=== PATIENT | female | born 1970 | race Caucasian/White ===

== ENCOUNTER 2018-02-01 13:35 | Emergency (ER) | payer OTHER, SELFPAY ==
[2018-02-01 13:35] VITALS: BP 187/103; PULSE 116; RESP 22; TEMP 36.8; O2SAT 99; BMI 32.5
--- NOTE | 2018-02-01 13:57 | RAD_ITS ---
STUDY: X-RAY CHEST REASON FOR EXAM: Female, 47 years old. Chest pain. TECHNIQUE: Single AP portable view of the chest. COMPARISON: None. FINDINGS: EKG electrodes are seen. The lungs are clear and expanded. There is no demonstrated pleural abnormality. Normal size heart. Normal mediastinum and rachel. Normal visualized pulmonary arteries. Normal visualized aortic arch and descending thoracic aorta. Normal visualized thoracic spine. Normal visualized ribs, clavicles, and shoulders. There is no demonstrated abnormality of the visualized soft tissue structures of the upper abdomen. RAD/Chest 1 View (Portable) IMPRESSION: Normal x-ray examination of the chest. Electronically Signed: Frandy Villegas MD at 14:10 EDT Tel [phone], Service support ,
--- NOTE | 2018-02-01 13:57 | EKG12_ITS ---
Test Reason : CP Blood Pressure : / mmHG Vent. Rate : 111 BPM Atrial Rate : 111 BPM P-R Int : 154 ms QRS Dur : 092 ms QT Int : 334 ms P-R-T Axes : 031 -24 025 degrees QTc Int : 454 ms Sinus tachycardia Otherwise normal ECG Confirmed by WOLFGANG ORDOÑEZ ([id number]), news videotape editor ASHER LUGO ([id number]) on 02/04/2018 10:23:26 AM Referred By: ASHLEY Confirmed By:WOLFGANG ORDOÑEZ
[2018-02-01 14:07] VITALS: O2SAT 98
[2018-02-01 14:07] LABS: Absolute Lymphocyte Count 2.92 X10^3/ul (0.83-4.51); Absolute Neutrophil Count 5.9 X10^3/uL (2.0-7.7); Basophil# 0.03 X10^3/uL; Basophil% 0.3 % (0-1); Eosinophil# 0.14 X10^3/uL; Eosinophils% 1.5 % (0-5); Hematocrit 46.6 % (37-47); Hemoglobin 15.5 g/dl (12.0-15.0); Lymphocyte # 2.92 X10^3/ul (4.0); Lymphocyte % 30.4 % (19-41); Mean Corp Hgb Conc 33.3 g/gl (32-36); Mean Corpuscular Hgb 29.4 pg (27.0-32.0); Mean Corpuscular Volume 88.4 fL (81-99); Mean Platelet Vol. 10.6 fl (6.2-12.0); Monocyte# 0.64 X10^3/uL; Monocyte% 6.7 % (0-10); Neutrophil # 5.85 X10^3/uL (2.7-7.7); Neutrophil % 60.9 % (47-70); Platelet Count 349 K/mm3 (150-450); RBC Distribution Width CV 12.9 % (11.6-14.6); RBC Distribution Width SD 41.4 fl (35.1-43.9); Red Blood Count 5.27 M/mm3 (4.2-5.4); White Blood Count 9.6 K/mm3 (4.4-11.0)
[2018-02-01 14:08] LABS: POSITIVE COUNT NO; POSITIVE DIFFERENTIAL NO; POSITIVE MORPHOLOGY NO
[2018-02-01] MEDS: Aspirin 81 MG TAB.CHEW 324 MG PO (14:10)
[2018-02-01 14:29] LABS: Anion Gap 6 (5-15); BUN 10 mg/dL (7-18); BUN/Creat Ratio 12.5 RATIO (10-20); Chloride 108 mmol/L (98-107); EST Glomerular Filtration Rate 82 mL/min (>60); Est Glom Filt Rate - Afr Amer 99 mL/min (>60); Estimated Creatinine Clearance 75.07 ml/min; Glucose 88 mg/dL (74-106); Potassium 3.8 mmol/L (3.5-5.1); Sodium Level 139 mmol/L (136-145); Thyroid Stim Hormone (TSH) 1.29 uIU/mL (0.358-3.74)
--- NOTE | 2018-02-01 14:33 | ED.VISSUMM ---
- ER Visit Summary Date of Service: 02/01/18 Chief Complaint: Chest pain, palpitations History of Present Illness: The patient is a 47 F who presents with the above symptoms. For the past couple weeks she has been having intermittent episodes where she feels palpitations. She felt tired she also feels dizzy. During these episodes she has felt near syncopal. She then has a burning on the left side of her chest. The symptoms then go away on their own. They are not related to anything, however today she was exercising and the symptoms started. This is never happened before. She has no cardiac history. She does have a family history of cardiac issues as her father has had multiple heart attacks and her mother had a CABG this year. Physical Examination: Vital signs reviewed. HEENT exam unremarkable. Heart is regular rate and rhythm without murmurs. Lungs are clear to auscultation. Abdomen is soft and nontender. Extremities reveal no edema. Skin exam normal. Neurologic exam normal. Peripheral pulses equal. Test Results: EKG normal sinus rhythm with no ST changes. Chest x-ray normal. Labs normal. TSH and d-dimer are also normal Emergency Department Course and Treatment: Patient was given aspirin. She had a normal workup. I am unclear the etiology of her symptoms. Her MARICRUZ score is 0. I informed her that she is to follow-up with her PCP. A Holter monitor may help diagnose her symptoms. She may need follow-up urology as well Treatment Plan: [] Disposition: Discharge Impression: Chest pain This note was generated with [employer]™ dictation software. It may contain incorrect words, spelling, and punctuation that were not noted in review of the chart prior to signing ED Disposition - Plan for ED Patient: Chief Complaint: Chest Pain Referrals: Jean Marie Freedman III, MD [Primary Care Provider] -
[2018-02-01 14:41] VITALS: BP 142/94; PULSE 88; RESP 12; O2SAT 97
[2018-02-01 14:45] LABS: D-Dimer Quantitative (DVT/PE) 0.32 FEU/ug/m (0.27-0.49)
--- NOTE | 2018-02-01 15:01 | ED.DEP ---
ED Disposition - Plan for ED Patient: Disposition: Home or Assisted Living Chief Complaint: Chest Pain Instructions: ED Chest Pain NonCardiac Referrals: Jean Marie Freedman III, MD [Primary Care Provider] -
[2018-02-01 15:09] VITALS: BP 146/92; PULSE 87; RESP 18; O2SAT 95
== END 2018-02-01 15:10 | disposition home or self-care (01) ==
PROVIDERS: Emergency Provider Emergency Medicine; Family Provider Family Medicine; PCP Family Medicine
DX: R07.9 Chest pain, unspecified (principal); R00.2 Palpitations; R42 Dizziness and giddiness
CPT/HCPCS: 36415; 71045; 80048; 84443; 84484; 85025; 85379; 93005; 99285; A4216

== ENCOUNTER 2018-02-05 20:36 | Observation (INO) | payer OTHER, SELFPAY ==
[2018-02-05] VITALS (7 sets, daily range): BP systolic 133–169; BP diastolic 79–92; PULSE 67–84; RESP 13–18; TEMP 36.6–37.2; O2SAT 98–99; BMI 33.9; BMI 33.7
--- NOTE | 2018-02-05 20:44 | EKG12_ITS ---
Test Reason : CP Blood Pressure : / mmHG Vent. Rate : 066 BPM Atrial Rate : 066 BPM P-R Int : 134 ms QRS Dur : 098 ms QT Int : 398 ms P-R-T Axes : -03 -14 010 degrees QTc Int : 417 ms Normal sinus rhythm Normal ECG Confirmed by ODUG COUCH, BUFFY ([id number]), order editor ASHER LUGO ([id number]) on 02/08/2018 8:55:18 AM Referred By: LOKESH Confirmed By:BUFFY CAMACHO MD
[2018-02-05 21:01] LABS: Absolute Lymphocyte Count 2.73 X10^3/ul (0.83-4.51); Absolute Neutrophil Count 6.4 X10^3/uL (2.0-7.7); Basophil# 0.03 X10^3/uL; Basophil% 0.3 % (0-1); Eosinophil# 0.18 X10^3/uL; Eosinophils% 1.8 % (0-5); Hemoglobin 14.3 g/dl (12.0-15.0); Lymphocyte # 2.73 X10^3/ul (4.0); Lymphocyte % 27.1 % (19-41); Mean Corp Hgb Conc 32.5 g/gl (32-36); Mean Corpuscular Hgb 28.9 pg (27.0-32.0); Mean Corpuscular Volume 89.1 fL (81-99); Mean Platelet Vol. 9.8 fl (6.2-12.0); Monocyte# 0.68 X10^3/uL; Monocyte% 6.8 % (0-10); Neutrophil # 6.42 X10^3/uL (2.7-7.7); Neutrophil % 63.7 % (47-70); POSITIVE COUNT NO; POSITIVE DIFFERENTIAL NO; POSITIVE MORPHOLOGY NO; Platelet Count 348 K/mm3 (150-450); RBC Distribution Width CV 12.9 % (11.6-14.6); RBC Distribution Width SD 41.9 fl (35.1-43.9); Red Blood Count 4.94 M/mm3 (4.2-5.4); White Blood Count 10.1 K/mm3 (4.4-11.0)
--- NOTE | 2018-02-05 21:05 | RAD_ITS ---
STUDY: X-RAY CHEST REASON FOR EXAM: Female, 47 years old. Chest pain TECHNIQUE: Single frontal view of the chest. COMPARISON: 02/01/2018. FINDINGS: The lungs are clear and expanded. There is no demonstrated pleural abnormality. Normal size heart. Normal mediastinum and rachel. Normal visualized pulmonary arteries. Normal visualized aortic arch and descending thoracic aorta. Normal visualized thoracic spine. Normal visualized ribs, clavicles, and shoulders. There is no demonstrated abnormality of the visualized soft tissue structures of the upper abdomen. RAD/Chest 1 View (Portable) IMPRESSION: No acute cardiopulmonary disease. Electronically Signed: Adonay Márquez DO at 21:32 EDT , Service support ,
[2018-02-05 21:18] LABS: Anion Gap 4 (5-15); BUN 10 mg/dL (7-18); BUN/Creat Ratio 12.6 RATIO (10-20); Calcium,Total 9.3 mg/dL (8.5-10.1); Chloride 106 mmol/L (98-107); Creatinine, Serum 0.79 mg/dL (0.55-1.02); EST Glomerular Filtration Rate 82 mL/min (>60); Est Glom Filt Rate - Afr Amer 100 mL/min (>60); Estimated Creatinine Clearance 76.02 ml/min; Glucose 132 mg/dL (74-106); Potassium 3.6 mmol/L (3.5-5.1); Sodium Level 141 mmol/L (136-145)
--- NOTE | 2018-02-05 22:00 | ED.DCSUM_ITS ---
- ER Visit Summary Date of Service: 02/05/18 Chief Complaint: Chest pain History of Present Illness: The patient is a 47 F who presents with chest pain. This is a second visit in the past week. Over the past roughly 3 weeks she complains of intermittent chest pain couple of episodes a day. She describes this as a burning which radiates through to her back from the center of her chest. She states it does radiate up the left side of the neck and down left arm. She also reports associated nausea shortness of breath and lightheadedness. Symptoms are worse with exertion and relieved with rest. She does have a family history of heart disease and her father had an CO at 45. She was also repeat recently started on aspirin and started treatment for hypertension. She is actually scheduled for an outpatient stress in a couple of days. Physical Examination: Blood pressure 169/88 vitals otherwise unremarkable Moist mucous membranes Heart regular rate and rhythm Lungs are clear Abdomen soft Extremities nontender 2+ radial pulses Alert Test Results: EKG shows sinus rhythm at a rate of 66. CBC BMP unremarkable and troponin negative. Chest x-ray shows no acute process. Emergency Department Course and Treatment: MARICRUZ risk score is 1, heart score is 3. However I am concerned given family history description of exertional symptoms and the fact this is now a second ER visit in a short timeframe and she is Jerry scheduled for outpatient stress test I felt it was best to admit her for further workup. Treatment Plan: [] Disposition: Admit Impression: Chest pain This note was generated with [employer] dictation software. It may contain incorrect words, spelling, and punctuation that were not noted in review of the chart prior to signing ED Disposition - Plan for ED Patient: Chief Complaint: Chest Pain Referrals: Jean Marie Freedman III, MD [Primary Care Provider] -
--- NOTE | 2018-02-05 23:08 | PCM.HP.STD ---
Problem List (1) Chest pain Status: Acute Qualifiers: Chest pain type: precordial pain Qualified Code(s): R07.2 - Precordial pain History of Present Illness Date of Admission: 02/05/18 Chief Complaint: Chest pain The patient is a 47 year old F seen in the emergency room at [facility] with a chief complaint of intermittent chest pain since last Sunday. Patient states that she walks on a treadmill regularly and had no complaints of any chest pain until last Sunday when she noticed what she described as heartburn in her mid and upper chest area, this radiated into the area across her shoulders, she also stated it went down her left arm and her right arm and into her neck. Patient states today she had another episode of precordial chest pain while she was doing her laundry. This episode lasted approximately 2 hours Patient states the episodes since that time that she has had have numbered approximately 5, she saw her PCP who placed her on blood pressure medication and set her up for a stress test later this week. Patient came to the emergency room today because she had another episode of chest discomfort and sought evaluation. Patient denies any shortness of breath with these episodes, patient's who was in the room during the time my examination stated that the patient told him that at times it feels like somebody is pushing on her chest. Patient states the episodes sometimes last up to 2 hours, activity seems to precipitate the episodes and she states the episodes go away on their own when she sits quietly. Evaluation in the emergency room included labs which were unremarkable including her troponin, chest x-ray was also unremarkable. Patient had an EKG which showed a normal sinus rhythm without evidence of ischemic changes. Patient will be placed in observation status on PCU, enzymes will be cycled, she will undergo an echocardiogram and have an exercise stress test performed if her enzymes remain normal. Past Medical History Allergies No Known Allergies Allergy (Verified 02/01/18 13:38) Home Medications: Ambulatory Orders Medication Instructions Recorded Fluoxetine HCl [Prozac] 20 mg PO DAILY 02/01/18 Aspirin [Aspirin, Baby] 81 mg PO DAILY 02/05/18 Lisinopril [Zestril] 5 mg PO DAILY 02/05/18 Surgical History: cholecystectomy, - - , kidney stone removal via cystoscope Psychiatric History: No pertinent psych hx AUGER OPERATOR History: No pertinent AUGER OPERATOR history Lives: Spouse/ Significant Other Smoking Status: Never smoker Tobacco Use: Non-smoker Alcohol: Occasional Drugs: None - *Family History Maternal History Items: - - History of heart valve replacement Paternal History Items: Heart Disease - At age 45-coronary artery disease Review of Systems Constitutional: Denies: Anorexia, Chills, Fever, Night Sweats, Malaise, Weakness, Weight Change, Fatigue Eyes: Denies: Cataracts, Conjunctivae Inflammation, Double vision, Drainage HEENT: Denies: Dysphasia, Ear Pain, Eye Pain, Head Aches, Hearing Changes, Nasal bleeding, Nasal Congestion, Post Nasal Drip Cardiovascular: Reports: Chest Pain, Chest Pressure. Denies: Claudication, Edema, Heaviness, Light Headedness, Orthopnea, Palpitations, Paroxysmal Noc. Dyspnea, Syncope Respiratory: Denies: Cough, Hemoptysis, Pleuritic Pain, Shortness of Breath, Shortness of breath at rest, Shortness of breath upon exertion, Sputum production, Wheezing Gastrointestinal: Denies: Abdominal Pain, Constipation, Diarrhea, Hematemesis, Hematochezia, Nausea, Melena, Vomiting Genitourinary: Denies: Dysuria, Frequency, Hematuria, Hesitancy, Nocturia, Retention, Urgency Gynecological: Denies: Breast symptoms Musculoskeletal: Denies: Back Pain, Foot Pain, Hand Pain, Joint Pain, Joint stiffness, Joint swelling, Joint Tenderness, Leg Pain Skin: Denies: Dryness, Pruritis, Rash Neurological: Denies: Blurred vision, Double vision, Change in Speech, Slurred speech, Difficulty swallowing, Focal weakness, Headaches, Incoordination, Numbness, Tingling Psychiatric: Denies: Anxiety, Depression, Homicidal Ideations, Suicidal Ideations Endocrine: Denies: Change in Body Habitus, Heat/ Cold Intolerance, Polydipsia, Polyuria Hematologic/ Lymphatic: Denies: Adenopathy, Anemia, Easy Bruising, Easy Bleeding, Petechiae, Purpura VTE Information - Inpt Only VTE Present on Admission: No VTE Mechan Device Prophylaxis: None VTE Pharm Prophylaxis ordered?: No Reason prophylaxis not ordered:: Treatment Not Indicated - Low risk for VTE Patient Problems: Active and Suspected Problems Chest pain (Acute) - Physical Exam General: Alert, Oriented x3, Cooperative, No apparent distress, Well developed, Well nourished HEENT: Atraumatic, PERRLA, EOMI, Normocephalic Oral: Moist Mucosa Neck: Supple, No JVD, Negative Carotid Bruits, No Nuchal Rigidity, Trachea Midline, Thyroid Normal Size and Texture Lungs: Clear to auscultation, Normal air movement, No rhonchi, No wheeze, No rales Cardiovascular: Regular rate, Normal S1, Normal S2, No murmurs, No Ectopic Activity, PMI Normal, No rub noted, No Gallop Abdomen: Bowel Sounds Present, Soft, Non Tender, Non-Distended, No hernias noted Extremities: No clubbing, No cyanosis, No edema, Capillary Refill Less than 3 Seconds Skin: No rashes, No breakdown Musculoskeletal: No Tenderness to Palpation of Joints or Extremities Neurological: Cranial nerves II-XII grossly intact, Neuro grossly intact, Sensory exam intact to light touch and pain, Coordination normal Psych/Mental Status: Normal Affect, Appropriate, Alert and oriented to time, place, person, mood and affect Vital Signs Temp Pulse Resp BP Pulse Ox 98.9 F 84 17 133/91 H 98 02/05/18 20:38 02/05/18 22:05 02/05/18 22:05 02/05/18 22:05 02/05/18 22:05 Assessment/Plan All Active Problems Chest pain (Acute) #1 precordial chest pain-most of what the patient complains of appears atypical for coronary artery disease, patient will be placed in observation status on PCU, cardiac enzymes will be cycled, she will undergo a nuclear exercise stress test if her enzymes remain negative. Patient will undergo an echocardiogram. #2 hypertension-patient was recently diagnosed as having hypertension, she states her PCP kept track of her blood pressure and did not feel she needed blood pressure medications total she was placed on them earlier in the week. Patient will continue on her present medications Code Visit OBSV E&M: [id number] Initial observation care L3
--- NOTE | 2018-02-05 23:18 | EKG12_ITS ---
Test Reason : ADM Blood Pressure : / mmHG Vent. Rate : 065 BPM Atrial Rate : 065 BPM P-R Int : 136 ms QRS Dur : 096 ms QT Int : 400 ms P-R-T Axes : -08 -19 000 degrees QTc Int : 416 ms Normal sinus rhythm Normal ECG When compared with ECG of 01-FEB-2018 13:36, Vent. rate has decreased BY 46 BPM Confirmed by DOUG COUCH, BUFFY ([id number]), metropolitan editor ASHER LUGO ([id number]) on 02/08/2018 9:46:26 AM Referred By: MINAL Confirmed By:BUFFY CAMACHO MD
[2018-02-06 03:03] VITALS: PULSE 63
[2018-02-06 03:25] LABS: Absolute Lymphocyte Count 3.37 X10^3/ul (0.83-4.51); Absolute Neutrophil Count 5.5 X10^3/uL (2.0-7.7); Basophil# 0.04 X10^3/uL; Basophil% 0.4 % (0-1); Eosinophil# 0.19 X10^3/uL; Eosinophils% 1.9 % (0-5); Hematocrit 40.9 % (37-47); Hemoglobin 13.6 g/dl (12.0-15.0); Lymphocyte # 3.37 X10^3/ul (4.0); Lymphocyte % 34.6 % (19-41); Mean Corp Hgb Conc 33.3 g/gl (32-36); Mean Corpuscular Hgb 29.4 pg (27.0-32.0); Mean Corpuscular Volume 88.5 fL (81-99); Mean Platelet Vol. 10.2 fl (6.2-12.0); Monocyte# 0.61 X10^3/uL; Monocyte% 6.3 % (0-10); Neutrophil # 5.51 X10^3/uL (2.7-7.7); Neutrophil % 56.5 % (47-70); Platelet Count 361 K/mm3 (150-450); RBC Distribution Width CV 12.9 % (11.6-14.6); RBC Distribution Width SD 41.5 fl (35.1-43.9); Red Blood Count 4.62 M/mm3 (4.2-5.4); White Blood Count 9.8 K/mm3 (4.4-11.0)
[2018-02-06 03:26] LABS: POSITIVE COUNT NO; POSITIVE DIFFERENTIAL NO; POSITIVE MORPHOLOGY NO
[2018-02-06 03:32] LABS: Prothrombin Time (Protime)PT. 12.9 SECONDS (11.7-14.9)
[2018-02-06 03:33] LABS: Partial Thromboplast Time 28.9 Seconds (24.1-36.2)
[2018-02-06 04:09] LABS: Anion Gap 8 (5-15); BUN 11 mg/dL (7-18); BUN/Creat Ratio 17.2 RATIO (10-20); Calcium,Total 8.4 mg/dL (8.5-10.1); Chloride 108 mmol/L (98-107); Creatinine, Serum 0.64 mg/dL (0.55-1.02); EST Glomerular Filtration Rate 106 mL/min (>60); Est Glom Filt Rate - Afr Amer 128 mL/min (>60); Estimated Creatinine Clearance 93.84 ml/min; Glucose 94 mg/dL (74-106); Potassium 3.9 mmol/L (3.5-5.1); Sodium Level 144 mmol/L (136-145)
[2018-02-06 05:26] VITALS: PULSE 70
[2018-02-06 05:40] VITALS: BP 128/84; PULSE 71; RESP 16; TEMP 36.7; O2SAT 98
[2018-02-06] MEDS: Aspirin 81 MG TAB.CHEW PO (05:47)
[2018-02-06] MEDS: Lisinopril 5 MG Tablet PO (05:48)
--- NOTE | 2018-02-06 05:55 | ECHOD_ITS ---
Reason For Study: Chest Pain Procedure This was a 2D Doppler, Color Flow transthoracic echocardiogram. Exam performed portable in patient room. Left Ventricle Normal size and thickness. The estimated ejection fraction is 65 %. Stage 1 diastolic dysfunction. No regional wall motion abnormalities noted. Right Ventricle Normal size and thickness. Normal systolic function. Atria Normal left atrium. Normal right atrium. Normal atrial septum. Mitral Valve The mitral valve is structurally normal. No prolapse or stenosis seen. Tricuspid Valve Normal tricuspid valve. Mild (1+) tricuspid valve insufficiency. Right ventricular systolic pressure estimated to be 29 mmHg. Aortic Valve Normal aortic valve. Trisinus/trileaflet aortic valve. Pulmonic Valve Normal pulmonic valve. Great Vessels Normal aortic root. Normal arch. Normal inferior vena cava. Inferior vena cava collapse with respiration. Pericardium/Pleural No pericardial effusion. MMode/2D Measurements & Calculations LVIDd: 4.4 cm IVSd: 0.87 cm Ao root diam: 3.1 cm LVIDs: 3.0 cm LVPWd: 0.84 cm LA dimension: 3.8 cm FS: 30.2 % LAV(MOD-bp): 47.1 ml LA A4 area: 17.3 cm2 RA A4 area: 18.6 cm2 LAV(MOD-bp) Indexed: 24.3 ml/m2 LAV(MOD-sp2): 48.7 ml LAV(MOD-sp4): 41.5 ml Time Measurements MV dec time: 0.28 sec Doppler Measurements & Calculations MV E max scott: 81.9 cm/sec Lat Peak E' Scott: 10.3 cm/sec Med Peak E' Scott: 7.9 cm/sec MV A max scott: 97.4 cm/sec E/E' lat: 8.0 E/E' med: 10.3 MV E/A: 0.84 MV V2 max: 110.9 cm/sec MV P1/2t max scott: 86.1 cm/sec Ao V2 max: 137.1 cm/sec MV max P.9 mmHg MV P1/2t: 111.8 msec Ao max P.5 mmHg MV V2 mean: 59.4 cm/sec MV dec slope: 225.6 cm/sec2 Ao V2 mean: 84.9 cm/sec MV mean P.7 mmHg MVA(P1/2t): 2.0 cm2 Ao mean P.4 mmHg MV V2 VTI: 31.8 cm Ao V2 VTI: 27.4 cm LV V1 max: 110.0 cm/sec PA V2 max: 92.9 cm/sec TR max scott: 242.7 cm/sec LV V1 max P.8 mmHg TR max P.6 mmHg LV V1 mean P.3 mmHg LV V1 mean: 69.5 cm/sec LV V1 VTI: 22.9 cm Interpretation Summary The estimated ejection fraction is 65 %. Stage 1 diastolic dysfunction. Mild (1+) tricuspid valve insufficiency. Right ventricular systolic pressure estimated to be 29 mmHg. There is no comparison study available. Ordering Physician: Kade Treviño Referring Physician: GLEN Freedman M.D. Performed By: Brodwolf, Juancarlos, RCS
--- NOTE | 2018-02-06 05:55 | EKG12_ITS ---
Test Reason : AM Blood Pressure : / mmHG Vent. Rate : 060 BPM Atrial Rate : 060 BPM P-R Int : 138 ms QRS Dur : 096 ms QT Int : 418 ms P-R-T Axes : 002 -20 000 degrees QTc Int : 418 ms Normal sinus rhythm Normal ECG When compared with ECG of 05-FEB-2018 23:38, MANUAL COMPARISON REQUIRED, DATA IS UNCONFIRMED Confirmed by DOUG COUCH, BUFFY ([id number]), editor managing director ASHER LUGO ([id number]) on 02/08/2018 9:45:33 AM Referred By: JAMILAH Confirmed By:BUFFY CAMACHO MD
--- NOTE | 2018-02-06 08:51 | STRESSREP ---
Stress Test Report Exercise myocardial perfusion stress test. 47-year-old lady with a history of chest pain. Stress protocol: Resting EKG demonstrates normal sinus rhythm with rate of 72 bpm normal intervals and noted resting blood pressure is 138/88 mmHg. The patient exercised according to regular Davis protocol for total duration of 7 minutes and 40 seconds. Patient completed 1 minute and 40 seconds to stage III of the Davis protocol the maximum heart rate attained was 171 bpm which was 98% of maximum predicted heart rate the maximum workload attained was 9.5 metabolic equivalents. At rest there were no ST or T-wave changes noted suggest ischemia peak exercise upsloping ST changes only were noted with no meet the criteria for ischemia. No clinical angina was noted there was some shortness of breath present. Myocardial perfusion protocol. 11.9 mCi of technetium 99m sestamibi was injected at rest. The patient exercised according to regular Davis protocol for total duration of 7 minutes and 40 seconds attaining 98% of maximum predicted heart rate and a workload of 9.5 metabolic equivalents at peak exercise 34.3 mCi of technetium 99m sestamibi was injected. Stress images were obtained stress and rest images were reconstructed and compared in the short axis vertical long and horizontal long axis. Gated images were also obtained. Perfusion SPECT analysis: Review of the stress images demonstrate normal uptake of tracer noted in all areas of the myocardium. The resting images similarly demonstrate normal uptake of tracer noted in all areas of the myocardium. No areas of reversibility are noted suggest ischemia. No previous infarct is noted. Gated SPECT analysis: The gated ejection fraction is 76%. Conclusion: Normal exercise myocardial perfusion stress test at a moderate to high workload. No clinical angina noted. Preserved ejection fraction.
--- NOTE | 2018-02-06 09:26 | PCM.DC ---
- Discharge Diagnoses Current Active Problems: Current Active and Chronic Problems Chest pain (Acute) You will use the following diet at home:: No restrictions Discharge Activity: Return to Normal Activity Call your doctor if you observe: Shortness of breath, Dizziness, Fainting spells, Chest pain Allergies/Adverse Reactions: Allergies No Known Allergies Allergy (Verified 02/05/18 23:49) Medications to take at Discharge Fluoxetine HCl [Prozac] 20 mg PO DAILY 02/01/18 Aspirin [Aspirin, Baby] 81 mg PO DAILY 02/05/18 Lisinopril [Zestril] 5 mg PO DAILY 02/05/18 Pantoprazole Sodium [Protonix] 40 mg PO DAILY #30 tab 02/06/18 The following prescriptions were given: Pantoprazole Sodium [Protonix] 40 mg PO DAILY #30 tab Primary Care Physician: Jean Marie Freedman III, MD [Primary Care Provider] - Please follow up with your Primary Care Physician in: 1 Week Proposed Discharge Date: 02/06/18
--- NOTE | 2018-02-06 09:30 | DCINST_ITS ---
- Discharge Diagnoses Current Active Problems: Current Active and Chronic Problems Chest pain (Acute) You will use the following diet at home:: No restrictions Discharge Activity: Return to Normal Activity Call your doctor if you observe: Shortness of breath, Dizziness, Fainting spells , Chest pain Allergies/Adverse Reactions: Allergies No Known Allergies Allergy (Verified 02/05/18 23:49) Medications to take at Discharge Fluoxetine HCl [Prozac] 20 mg PO DAILY 02/01/18 Aspirin [Aspirin, Baby] 81 mg PO DAILY 02/05/18 Lisinopril [Zestril] 5 mg PO DAILY 02/05/18 Pantoprazole Sodium [Protonix] 40 mg PO DAILY #30 tab 02/06/18 The following prescriptions were given: Pantoprazole Sodium [Protonix] 40 mg PO DAILY #30 tab Primary Care Physician: Jean Marie Freedman III, MD [Primary Care Provider] - Please follow up with your Primary Care Physician in: 1 Week Proposed Discharge Date: 02/06/18
--- NOTE | 2018-02-06 09:35 | PCM.DC.SUM ---
<Nahomy Her - Last Filed: 02/06/18 09:59> Discharge Date and Diagnosis Date of Admission: 02/05/18 Date of Discharge: 02/06/18 - Primary Discharge Diagnosis Active and Suspected Problems 1. Non-cardiac chest pain - Secondary Discharge Diagnosis Depression Hypertension Hospital Course and Treatment Imaging Results: Diagnostic Data Chest X-Ray 02/05/18 21:05 IMPRESSION: No acute cardiopulmonary disease. Electronically Signed: Adonaybenjamin MárquezDO at 21:32 EDT , Service support , Operations: None Procedures: 2-D Echocardiogram, Stress test Summary of Care Provided: The patient is a 47 year old F who presents to the emergency room due to chest pain. She states this has been ongoing for the past few months. Pain occurs intermittently and is not typically associated with exertion. She complains of associated shortness of breath, dizziness and pain radiation to her right arm and neck. These episodes typically last 2 hours. She denies being under increased stress recently. She does state her daughter a year and a half ago and she is still dealing with this loss. Her cardiac workup was unremarkable. Troponin and stress test negative. EKG without evidence of ischemia. Patient describes chest pain as a burning sensation. Will try PPI to see if this helps with her symptoms. If no improvement, recommend further discussion regarding anxiety related to her symptoms. Echocardiogram completed. Results pending and will review prior to discharge. Patient's vitals have remained stable. Patient has a history of depression and hypertension. She will continue home medication regimen with the addition of Protonix 40 mg daily. Follow-up with primary care physician in 1 week. Patient seen exam prior to discharge. Alert, oriented, no acute distress. Lungs clear. Heart rate regular in rate and rhythm. Neuro grossly intact. Abdomen soft, nontender. No edema. Skin intact. Normal affect. Vital signs stable. This patient was seen by TEMO Eckert under the supervision of Dr. Grimm. Discharge Diet: No Restrictions Discharge Activity: Return to Normal Activity Call your doctor if you observe: Shortness of breath, Dizziness, Fainting spells, Chest pain Home Medications: Medications to take at Discharge Fluoxetine HCl [Prozac] 20 mg PO DAILY 02/01/18 Aspirin [Aspirin, Baby] 81 mg PO DAILY 02/05/18 Lisinopril [Zestril] 5 mg PO DAILY 02/05/18 Pantoprazole Sodium [Protonix] 40 mg PO DAILY #30 tab 02/06/18 Following Prescrptions Were Given to Patient: Pantoprazole Sodium [Protonix] 40 mg PO DAILY #30 tab Primary Care Physician: Jean Marie Freedman III, MD [Primary Care Provider] - Please follow up with your Primary Care Physician in: 1 Week Disposition: Home Minutes spent on discharge:: 35 Patient Condition:: Stable Medical Necessity - Tobacco Use Smoking Status: Never smoker Tobacco Use: Non-smoker Meaningful Use Info Meaningful Use Diagnoses (Choose all that apply): None applicable <Miguel Grimm E - Last Filed: 02/06/18 12:37> Hospital Course and Treatment Imaging Results: 02/06/18 05:55 Echo Complete [ECHO] AM (NON MEDS) Nuclear Stress Test - Treadmil [NM] AM (NON MEDS) Summary of Care Provided: Hospitalist note: Discharge summary above reviewed and I agree with above discharge plan. Patient admitted for atypical chest pain. She had most factors for CAD except family history of premature CAD. Her workup including EKG, cardiac enzymes and chest x-ray as well as nuclear stress test were unremarkable. ACS ruled out. Her symptoms attributed to possible GERD versus musculoskeletal pain. Anxiety and stress is another possibility. Her routine blood work was unremarkable. Her vital signs were stable. - Physical Exam General: Alert, Oriented x3, Cooperative, No apparent distress. HEENT: Atraumatic, PERRLA, EOMI. Neck: Supple, No JVD, Negative Carotid Bruits, Trachea Midline, Thyroid Normal. Lungs: Clear to auscultation, Normal air movement, No rhonchi, No wheeze, No rales. Cardiovascular: Regular rate, Regular Rhythm, Normal S1, Normal S2, PMI Normal. Abdomen: Bowel Sounds Present, Soft, Non Tender, Non-Distended, No Hepato-splenomegaly. Extremities: No clubbing, No cyanosis, No edema Skin: No rashes, No breakdown Neurological: Neuro grossly intact Vital Signs are stable. Patient discharged home in a stable medical condition, discharged on Protonix trial for 1 month, continued on aspirin, lisinopril and Prozac, recommended follow-up with PCP in 1 week. Minutes spent on discharge:: 24 Meaningful Use Info Meaningful Use Diagnoses (Choose all that apply): None applicable Code Visit OBSV E&M: 27502 Observation care discharge
--- NOTE | 2018-02-06 09:45 | DS.PCM_ITS ---
<Nahomy Her - Last Filed: 02/06/18 09:59> Discharge Date and Diagnosis Date of Admission: 02/05/18 Date of Discharge: 02/06/18 - Primary Discharge Diagnosis Active and Suspected Problems 1. Non-cardiac chest pain - Secondary Discharge Diagnosis Depression Hypertension Hospital Course and Treatment Imaging Results: Diagnostic Data Chest X-Ray 02/05/18 21:05 IMPRESSION: No acute cardiopulmonary disease. Electronically Signed: Adonaybenjamin MárquezDO at 21:32 EDT , Service support , Operations: None Procedures: 2-D Echocardiogram, Stress test Summary of Care Provided: The patient is a 47 year old F who presents to the emergency room due to chest pain. She states this has been ongoing for the past few months. Pain occurs intermittently and is not typically associated with exertion. She complains of associated shortness of breath, dizziness and pain radiation to her right arm and neck. These episodes typically last 2 hours. She denies being under increased stress recently. She does state her daughter a year and a half ago and she is still dealing with this loss. Her cardiac workup was unremarkable. Troponin and stress test negative. EKG without evidence of ischemia. Patient describes chest pain as a burning sensation. Will try PPI to see if this helps with her symptoms. If no improvement, recommend further discussion regarding anxiety related to her symptoms. Echocardiogram completed. Results pending and will review prior to discharge. Patient's vitals have remained stable. Patient has a history of depression and hypertension. She will continue home medication regimen with the addition of Protonix 40 mg daily. Follow-up with primary care physician in 1 week. Patient seen exam prior to discharge. Alert, oriented, no acute distress. Lungs clear. Heart rate regular in rate and rhythm. Neuro grossly intact. Abdomen soft, nontender. No edema. Skin intact. Normal affect. Vital signs stable. This patient was seen by TEMO Eckert under the supervision of Dr. Grimm. Discharge Diet: No Restrictions Discharge Activity: Return to Normal Activity Call your doctor if you observe: Shortness of breath, Dizziness, Fainting spells , Chest pain Home Medications: Medications to take at Discharge Fluoxetine HCl [Prozac] 20 mg PO DAILY 02/01/18 Aspirin [Aspirin, Baby] 81 mg PO DAILY 02/05/18 Lisinopril [Zestril] 5 mg PO DAILY 02/05/18 Pantoprazole Sodium [Protonix] 40 mg PO DAILY #30 tab 02/06/18 Following Prescrptions Were Given to Patient: Pantoprazole Sodium [Protonix] 40 mg PO DAILY #30 tab Primary Care Physician: Jean Marie Freedman III, MD [Primary Care Provider] - Please follow up with your Primary Care Physician in: 1 Week Disposition: Home Minutes spent on discharge:: 35 Patient Condition:: Stable Medical Necessity - Tobacco Use Smoking Status: Never smoker Tobacco Use: Non-smoker Meaningful Use Info Meaningful Use Diagnoses (Choose all that apply): None applicable <Miguel Grimm E - Last Filed: 02/06/18 12:37> Hospital Course and Treatment Imaging Results: 02/06/18 05:55 Echo Complete [ECHO] AM (NON MEDS) Nuclear Stress Test - Treadmil [NM] AM (NON MEDS) Summary of Care Provided: Hospitalist note: Discharge summary above reviewed and I agree with above discharge plan. Patient admitted for atypical chest pain. She had most factors for CAD except family history of premature CAD. Her workup including EKG, cardiac enzymes and chest x-ray as well as nuclear stress test were unremarkable. ACS ruled out. Her symptoms attributed to possible GERD versus musculoskeletal pain. Anxiety and stress is another possibility. Her routine blood work was unremarkable. Her vital signs were stable. - Physical Exam General: Alert, Oriented x3, Cooperative, No apparent distress. HEENT: Atraumatic, PERRLA, EOMI. Neck: Supple, No JVD, Negative Carotid Bruits, Trachea Midline, Thyroid Normal. Lungs: Clear to auscultation, Normal air movement, No rhonchi, No wheeze, No rales. Cardiovascular: Regular rate, Regular Rhythm, Normal S1, Normal S2, PMI Normal. Abdomen: Bowel Sounds Present, Soft, Non Tender, Non-Distended, No Hepato- splenomegaly. Extremities: No clubbing, No cyanosis, No edema Skin: No rashes, No breakdown Neurological: Neuro grossly intact Vital Signs are stable. Patient discharged home in a stable medical condition, discharged on Protonix trial for 1 month, continued on aspirin, lisinopril and Prozac, recommended follow-up with PCP in 1 week. Minutes spent on discharge:: 24 Meaningful Use Info Meaningful Use Diagnoses (Choose all that apply): None applicable Code Visit OBSV E&M: 77453 Observation care discharge
[2018-02-06] MEDS: FLUoxetine 20 MG Capsule PO (10:15)
[2018-02-06] MEDS: Pantoprazole Sodium 40 MG Tablet PO (10:15)
[2018-02-06 10:52] VITALS: PULSE 70
[2018-02-06 11:40] VITALS: BP 116/72; PULSE 72; RESP 16; TEMP 36.8; O2SAT 98
== END 2018-02-06 09:27 | disposition home or self-care (01) ==
LOC: ED 22:55 → PCU 22:57
PROVIDERS: Admitting Provider Internal Medicine; Emergency Provider Emergency Medicine; Family Provider Family Medicine; PCP Family Medicine; Visit Provider Hospitalist
DX: R07.89 Other chest pain (principal); Z82.49 Family history of ischemic heart disease and other diseases of the circulatory system; R06.02 Shortness of breath; I10 Essential (primary) hypertension; F32.9 Major depressive disorder, single episode, unspecified; Z79.899 Other long term (current) drug therapy; Z79.82 Long term (current) use of aspirin
CPT/HCPCS: 36415; 71045; 78452; 80048; 84484; 85025; 85610; 85730; 93005; 93017; 93306; 99218; 99285; A9500; A4216; G0378

== ENCOUNTER 2021-10-20 04:35 | Emergency (ER) | payer OTHER, SELFPAY ==
[2021-10-20 04:36] VITALS: BP 153/89; PULSE 74; RESP 18; TEMP 36.8; O2SAT 94
--- NOTE | 2021-10-20 04:51 | CT_ITS ---
STUDY: CT ABDOMEN AND PELVIS WITHOUT CONTRAST REASON FOR EXAM: Female, 51 years old patient with left-sided flank pain. RADIATION DOSAGE (If Supplied By Facility): CTDIvol = ( 9.90 ) mGy, DLP = ( 477.18 ) mGycm TECHNIQUE: Transaxial images were obtained from the dome of the diaphragm to the symphysis pubis without oral contrast, and without intravenous contrast. Sagittal and coronal images were reconstructed. Individualized dose optimization techniques were used for this CT. COMPARISON: Prior comparison studies are not available for review at this time. FINDINGS: There is bilateral basilar dependent atelectasis. The visualized portions of the heart are within normal limits. Normal liver. There is non-visualization of the gallbladder, which may be secondary to either contraction or a prior cholecystectomy. Normal spleen. Normal pancreas. There is left-sided adrenal nodule measuring 2.9 x 2.0 x 1.8 cm. Normal right kidney. There is moderate left-sided hydronephrosis and hydroureter secondary to proximal ureteral calculus measuring 1.3 x 0.6 cm. There are also nonobstructing left-sided renal calculi measuring up to 1.7 cm. There appears to be a second left ureteral calculus located distally measuring 7.5 mm in greatest dimension. There is left-sided perinephric fluid and stranding. Normal visualized stomach. There is no obvious dilated bowel, ascites or pneumoperitoneum. The small bowel has a grossly normal appearance. There is stool visible throughout the colon with scattered diverticula. There are surgical clips in the region of the appendix consistent with a prior appendectomy. There is minimal atherosclerotic calcification of the abdominal aorta, without a demonstrated aneurysm. There is venous distention of the inferior vena cava (IVC). Normal retroperitoneum. Normal urinary bladder. Normal visualized uterus. There is a small umbilical hernia containing fat. There are diffuse degenerative changes of the visualized lumbar spine. The bones appear osteopenic. There is mild compression of L1 which may be old. There is a Schmorl''s node at the superior endplate of T11. CT/Abdomen/Pelvis without Cont IMPRESSION: 1. Moderate LEFT-sided hydronephrosis and hydroureter secondary to proximal and distal ureteral calculi. 2. Nonobstructing left-sided renal calculi. Electronically Signed: Galilea Norwood MD at 5:59 EST Reading Location ID and State: [facility] / [place] , Service support ,
[2021-10-20] MEDS: Morphine 4 MG/ML Syringe IV ×2 (04:55→06:49)
[2021-10-20] MEDS: 0.9% Normal Saline 1,000 ML 999 ML IV (04:55)
[2021-10-20] MEDS: Ondansetron 4 MG/2 ML Vial IV (04:55)
[2021-10-20 04:56] LABS: Absolute Lymphocyte Count 1.59 X10^3/uL (0.83-4.51); Absolute Neutrophil Count 12.5 X10^3/uL (2.0-7.7); Basophil# 0.04 X10^3/uL; Basophil% 0.3 % (0-1); Eosinophil# 0.09 X10^3/uL; Eosinophils% 0.6 % (0-5); Hematocrit 43.5 % (37-47); Hemoglobin 15.3 g/dL (12.0-15.0); Lymphocyte # 1.59 X10^3/ul (0.83-4.51); Lymphocyte % 10.7 % (19-41); Mean Corp Hgb Conc 35.2 g/dL (32-36); Mean Corpuscular Hgb 31.2 pg (27.0-32.0); Mean Corpuscular Volume 88.8 fL (81-99); Mean Platelet Vol. 10.7 fl (6.2-12.0); Monocyte# 0.62 X10^3/uL; Monocyte% 4.2 % (0-10); NRBC Flagged by Analyzer 0 % (0-5); Neutrophil # 12.53 X10^3/uL (2.7-7.7); Neutrophil % 83.9 % (47-70); Platelet Count 384 K/mm3 (150-450); RBC Distribution Width CV 13.3 % (11.6-14.6); RBC Distribution Width SD 43.4 fl (35.1-43.9); White Blood Count 14.9 K/mm3 (4.4-11.0)
[2021-10-20 05:13] LABS: Anion Gap 6 (5-15); BUN 17 mg/dL (7-18); BUN/Creat Ratio 20.5 RATIO (10-20); Calcium,Total 8.9 mg/dL (8.5-10.1); Chloride 106 mmol/L (98-107); Creatinine, Serum 0.83 mg/dL (0.55-1.02); EST Glomerular Filtration Rate 77 mL/min (>60); Est Glom Filt Rate - Afr Amer 93 mL/min (>60); Estimated Creatinine Clearance 69.24 ml/min; Glucose 134 mg/dL (74-106); Sodium Level 140 mmol/L (136-145)
[2021-10-20 05:32] LABS: Mucous, Urine 0 SEEN /hpf (<or=2+); Squamous Epithelial Cells - UA 0 SEEN /hpf (5-10)
[2021-10-20 05:33] LABS: Color, Urine Yellow (Yellow); Glucose, Dipstick Normal (Normal); Ketone-Dipstick Negative (Negative); Leukocyte Esterase-Dipstick 100 /ul (Negative); Nitrite-Dipstick Negative (Negative); Occult Blood-Urine 250 /ul (Negative); Protein-Dipstick 30 mg/dl (Negative); Urine Bilirubin Dipstick Negative (Negative); Urine Clarity Clear (Clear); Urine Urobilinogen Normal (Normal); Urine pH 6.5 (5.0 - 8.0)
[2021-10-20] MEDS: Ketorolac 30 MG/ML Syringe IV (05:43)
[2021-10-20 05:47] LABS: Red Blood Cells-Urine 25-50 SEEN /hpf (0-5); White Blood Cells 0-5 SEEN /hpf (0-5)
[2021-10-20 05:48] LABS: Bacteria 1+ /hpf (None Seen)
[2021-10-20] MEDS: Ceftriaxone 1 GM/50 ML BAG IV (06:09)
--- NOTE | 2021-10-20 06:10 | EDS_ITS ---
HPI History of Present Illness Chief Complaint: Flank Pain Narrative Narrative: Patient is a 51-year-old female who states she has been having some left-sided back/flank pain for the past 3 to 4 days with no known trauma. She also denies any excessive activity or heavy lifting. She states that this evening she awoke around 1:30 in the morning with severe sharp pain in the left low back/flank region wrapping towards the abdomen. She states she has been no loss of bowel or bladder control and she denies any IV drug use. She states has been trying [id number] medications with no symptom improvement and secondary to this comes in for evaluation. Patient does report a remote history of kidney stones and states this feels similar nature. [facility] Medical History Kidney calculi Home Medications cephalexin 500 mg PO TID 7 Days #21 cap 10/20/21 [Rx Last Taken Unknown] ketorolac 10 mg PO Q6H PRN 5 Days #20 tab 10/20/21 [Rx Last Taken Unknown] ondansetron 4 mg PO TID PRN PRN #21 tab 10/20/21 [Rx Last Taken Unknown] oxycodone-acetaminophen [Percocet] 1 tab PO Q6H PRN 3 Days #12 tab 10/20/21 [Rx Last Taken Unknown] tamsulosin [Flomax] 0.4 mg PO DAILY 14 Days #14 cap 10/20/21 [Rx Last Taken Unknown] Allergy/AdvReac Type Severity Reaction Status Date / Time No Known Allergies Allergy Verified 10/20/21 04:39 Social History Smoking Status: Never smoker [facility] ED Constitutional Constitutional ED: Denies chills or fever(s) ENT ENT ED: Denies sore throat Cardiovascular Cardiovascular: Denies chest pain Respiratory/Chest Respiratory/Chest: Denies cough or dyspnea Gastrointestinal Gastrointestinal: Reports abdominal pain and nausea; Denies diarrhea or vomiting Genitourinary Genitourinary ED: Denies dysuria Musculoskeletal Musculoskeletal: Reports back pain; Denies myalgias Integumentary Denies rash Neurologic Neurologic: Denies headache(s) Hematologic/Lymphatic Hematologic/Lymphatic: Denies easy bleeding or easy bruising EXAM Physical Exam Const Vital Signs: 10/20/21 04:36 10/20/21 06:44 Temperature 98.2 F Temperature Source Oral Pulse Rate 74 94 Respiratory Rate 18 18 Blood Pressure 153/89 H 148/90 H Blood Pressure Mean 110 109 Pulse Ox 94 97 Oxygen Delivery Method Room Air Positive well nourished and well developed General Appearance ED: well developed HEENT Reports moist mucous membranes Eyes PERRL and EOMs intact bilaterally Neck supple Resp normal respiratory effort and clear to auscultation bilaterally Cardio regular rate and regular rhythm Rate: other Other Details: Radial pulses are +2-4 bilaterally are equal and symmetric GI normal to inspection, nondistended, normoactive bowel sounds, non-tender, non- distended and no masses GI Narrative: No voluntary guarding or rigidity no pulsatile mass Auscultation: normoactive bowel sounds Palpation: soft Back/Spine Back/Spine Narrative: Positive left CVA pain Extremity normal to inspection Neuro oriented x3 and CN's II-XII intact bilaterally Sensorium / Orientation: alert Motor Exam: strength 5/5 throughout Psych mental status grossly normal Skin no rashes or lesions noted Skin Narrative: No overlying soft tissue changes to suggest trauma or infection MDM MDM MDM Narrative Medical decision making narrative: Patient presented to the ER hypertensive but otherwise afebrile. Her history and exam is concerning for repeat kidney stone. Basic labs and a noncontrast CT were ordered. Labs show +1 bacteria in the urine and a white count of 14.9 but otherwise no left shift or acute kidney inju ry. CT scan showed moderate hydroureteronephrosis and she has a large 1.3 cm as well as a 7.5 mm stone. I discussed this case with urology based on the large nature of the stone. They recommended admission for pain control and possible stent placement tomorrow. The patient initially agreed to this but at this time wants to try outpatient medication and states she will return to the hospital or follow-up with urology if she is not doing any better. Therefore at this time patient will be discharged with Percocet Toradol Flomax and Keflex and return to the hospital if she has worsening of symptoms. Lab Data Attestation: I reviewed the patient's lab results. Labs: Laboratory Results - last 24 hr 10/20/21 10/20/21 10/20/21 04:48 04:48 05:20 WBC 14.9 H RBC 4.90 Hgb 15.3 H Hct 43.5 MCV 88.8 MCH 31.2 MCHC 35.2 RDW Std Deviation 43.4 RDW Coeff of Nasrin 13.3 Plt Count 384 MPV 10.7 Immature Gran % (Auto) 0.300 Neut % (Auto) 83.9 H Lymph % (Auto) 10.7 L [place] % (Auto) 4.2 Eos % (Auto) 0.6 Baso % (Auto) 0.3 Absolute Neuts (auto) 12.5 H Absolute Lymphs (auto) 1.59 Nucleated RBC % 0 Sodium 140 Potassium 4.0 Chloride 106 Carbon Dioxide 28.0 Anion Gap 6 BUN 17 Creatinine 0.83 Estim Creat Clear Calc 69.24 Est GFR (MDRD) Af Amer 93 Est GFR (MDRD) Non-Af 77 BUN/Creatinine Ratio 20.5 H Glucose 134 H Calcium 8.9 Urine Color Yellow Urine Clarity Clear Urine pH 6.5 Ur Specific [place] 1.010 Urine Protein 30 H Urine Glucose (UA) Normal Urine Ketones Negative Urine Occult Blood 250 H Urine Nitrite Negative Urine Bilirubin Negative Urine Urobilinogen Normal Ur Leukocyte Esterase 100 H Urine RBC 25-50 SEEN Urine WBC 0-5 SEEN Ur Squamous Epith Cells 0 SEEN Urine Bacteria 1+ Urine Mucus 0 SEEN Radiography Diagnostic Testing: Clinical Impression(s) from Imaging Studies Abdomen/Pelvis CT 10/20/21 04:51 IMPRESSION: 1. Moderate LEFT-sided hydronephrosis and hydroureter secondary to proximal and distal ureteral calculi. 2. Nonobstructing left-sided renal calculi. Electronically Signed: Galilea Norwood MD at 5:59 EST Reading Location ID and State: [address] [place] [address] , Service support , Discharge Plan Triage Chief Complaint: Flank Pain ED Provider: Renzo Prince Dx/Rx/DC Orders Clinical Impression: Renal colic, Kidney stone, Hydroureteronephrosis Instructions: ED Kidney Stone w/ Colic Prescriptions: New oxycodone-acetaminophen [Percocet] 5-325 mg tablet 1 tab PO Q6H PRN (Reason: pain) 3 Days Qty: 12 RF: 0 ketorolac 10 mg tablet 10 mg PO Q6H PRN (Reason: pain) 5 Days Qty: 20 RF: 0 tamsulosin [Flomax] 0.4 mg capsule 0.4 mg PO DAILY 14 Days Qty: 14 RF: 0 cephalexin 500 mg capsule 500 mg PO TID 7 Days Qty: 21 RF: 0 ondansetron 4 mg tablet,disintegrating 4 mg PO TID PRN PRN (Reason: nausea and vomiting) Qty: 21 RF: 0 Primary Care Provider: Care Physician,No Primary Referrals: Benjamín Cotton MD [STAFF PHYSICIAN] - 1 Day Care Physician,No Primary [Primary Care Provider] - Activity Restrictions/Additional Instructions: Please return to the ER if your pain is not controlled with outpatient medication or he develop a fever over 100.4. Please also call Dr. Cotton's office this morning as he believes he should be able to work you in for a visit later today Disposition Disposition: Home, Self Care
[2021-10-20 06:44] VITALS: BP 148/90; PULSE 94; RESP 18; O2SAT 97
--- NOTE | 2021-10-20 08:34 | ED.RN ---
PT CALLED WITH CONCERNS THAT THE PHARMACIES HE IS TRYING TO GET THE PERCOCET FILLED ALL SAY IT IS ON BACK ORDER. THIS NURSE SPOKE WITH [facility] IN [facility]. PERCOCET IS IN STOCK AT [facility]. THIS INFORMATION WAS RELAYED TO THE .
== END 2021-10-20 06:57 | disposition home or self-care (01) ==
PROVIDERS: Emergency Provider Emergency Medicine; Visit Provider Emergency Medicine
DX: N13.2 Hydronephrosis with renal and ureteral calculous obstruction (principal); Z79.899 Other long term (current) drug therapy; Z87.442 Personal history of urinary calculi
CPT/HCPCS: 74176; 80048; 81001; 85025; 87086; 87088; 96361; 96365; 96375; 96376; 99283; J7030; J7050; A4216; J2405

== ENCOUNTER 2021-10-29 01:10 | Emergency (ER) | payer OTHER, SELFPAY ==
[2021-10-29 01:10] VITALS: BP 191/91; PULSE 84; RESP 18; TEMP 36.4; O2SAT 99; BMI 31.0
--- NOTE | 2021-10-29 01:19 | EDS_ITS ---
HPI HPI - Female History of Present Illness Chief Complaint: Flank Pain Informant: patient and spouse/S.O. Pain Timing: Continuous Current Severity: Moderate Maximum Severity: Severe Narrative Narrative: 51 female history of prior kidney stones. Had one diagnosed about 10 days ago. She believes she passed that. She has had ureteral stent before that was several years ago. Patient states tonight around 6 PM she developed left flank pain. She denies any nausea vomiting or diarrhea. No fever. No gross hematuria. Prior similar symptoms: Yes Recent Illness/Hospitalization: No PFSH PFSH Medical History Kidney calculi Home Medications cephalexin 500 mg PO TID 7 Days #21 cap 10/20/21 [Rx Last Taken Unknown] ketorolac 10 mg PO Q6H PRN 5 Days #20 tab 10/20/21 [Rx Last Taken Unknown] ondansetron 4 mg PO TID PRN PRN #21 tab 10/20/21 [Rx Last Taken Unknown] oxycodone-acetaminophen [Percocet] 1 tab PO Q6H PRN 3 Days #12 tab 10/20/21 [Rx Last Taken Unknown] tamsulosin [Flomax] 0.4 mg PO DAILY 14 Days #14 cap 10/20/21 [Rx Last Taken Unknown] oxycodone-acetaminophen [Percocet] 1 tab PO Q4H PRN 4 Days #14 tab 10/29/21 [Rx Last Taken Unknown] Allergy/AdvReac Type Severity Reaction Status Date / Time No Known Allergies Allergy Verified 10/29/21 01:13 Social History Smoking Status: Never smoker ROS ROS ED ROS Narrative Left flank pain. Review of Systems ROS Unobtainable: Denies due to encephalopathy Constitutional Constitutional ED: Denies chills or fever(s) Eyes Eyes: Denies change in vision ENT ENT ED: Denies ear pain Cardiovascular Cardiovascular: Denies chest pain Respiratory/Chest Respiratory/Chest: Denies cough or dyspnea Gastrointestinal Gastrointestinal: Reports abdominal pain; Denies diarrhea, nausea or vomiting Genitourinary Genitourinary ED: Denies dysuria or hematuria Musculoskeletal Musculoskeletal: Denies myalgias Integumentary Denies rash Neurologic Neurologic: Denies headache(s) Psychiatric Psychiatric: Denies depression Endocrine Endocrinology: Denies polyuria Hematologic/Lymphatic Hematologic/Lymphatic: Denies easy bruising Allergic/Immunologic Allergic/Immunologic ED: Denies urticaria EXAM Physical Exam Narrative Exam Narrative: 31-year-old female. Vital signs stable afebrile. H EENT exam unremarkable. Moist with membranes. Lungs clear to auscultation. Heart regular rhythm rate about 85 no murmur. Abdomen soft nondistended normal bowel sounds no peritoneal signs. Patient moving all 4 extremities nontender. No edema. Neurologically she is awake and alert. Complaining of left flank pain radiating to her left lower quadrant is nonreproducible. Const Vital Signs: 10/29/21 01:10 Temperature 97.6 F L Temperature Source Oral Pulse Rate 84 Respiratory Rate 18 Blood Pressure 191/91 H Blood Pressure Mean 124 Pulse Ox 99 Oxygen Delivery Method Room Air Positive well nourished and well developed; Negative for obese, cachectic, contractures or unkempt General Appearance ED: well developed; Negative for unkempt, cachectic, contractures or pallor Nutritional Appearance: Negative for cachectic or obese HEENT Reports moist mucous membranes Negative for trauma or tenderness Eyes PERRL and EOMs intact bilaterally Neck no lymphadenopathy, supple and no JVD Thyroid: Negative for tender Chest Wall inspection of chest normal and palpation of chest normal Resp normal respiratory effort and clear to auscultation bilaterally Effort and Inspection: Negative for pain with movement Auscultation: Negative for rales, rhonchi or wheezes Cardio regular rate, regular rhythm, S1 normal heart sound, no murmurs and no JVD GI normal to inspection, nondistended, normoactive bowel sounds, soft to palpation, non-tender, non-distended and no masses Auscultation: normoactive bowel sounds Palpation: Negative for tender, guarding or rigid Back/Spine no CVA tenderness Extremity normal to inspection and full ROM General Extremety ED: Negative for edema or tenderness General Extremity: Negative for edema Neuro oriented x3 Sensorium / Orientation: alert, oriented to person, oriented to place and oriented to time; Negative for confused, lethargic or stuporous Motor Exam: strength 5/5 throughout Psych mental status grossly normal Appearance: Negative for unkempt Mood & Affect: Negative for depressed or tearful Skin no rashes or lesions noted and no wounds General Skin Exam: Negative for jaundice or pallor MDM MDM MDM Narrative Medical decision making narrative: 51-year-old female history of kidney stones diagnosed with one about 10 days ago which she believes she passed. Sudden onset of left flank pain tonight around 6 PM. She will be treated with IV Dilaudid and Zofran. She took Toradol at home along with the Percocet. Labs, CAT scan and urinalysis being obtained. Repeat exam at 1:45 AM patient's pain is much improved. She is returned from CAT scan. Awaiting CAT scan and lab results. Repeat exam at 2:42 AM patient is doing well. Pain is well controlled. Labs are unremarkable. Kidney function remains normal. CAT scan shows a 7 mm left proximal stone with hydronephrosis and hydroureter. She will be given another IV dose of half a milligram of Dilaudid prior to discharge. Percocet prescription for home. She has appointment to see her urologist on Sunday. Lab Data Attestation: I reviewed the patient's lab results. Lab results narrative: Urinalysis shows 250 occult blood. No nitrites. Microscopic UA negative. No whites, red cells or bacteria. Electrolytes unremarkable. Gap of 5. Normal BUN and creatinine. Glucose of 130. Labs: Laboratory Results - last 24 hr 10/29/21 10/29/21 01:20 01:25 Sodium 137 Potassium 4.2 Chloride 102 Carbon Dioxide 30.0 Anion Gap 5 BUN 15 Creatinine 0.98 Estim Creat Clear Calc 58.65 Est GFR (MDRD) Af Amer 77 Est GFR (MDRD) Non-Af 64 BUN/Creatinine Ratio 15.4 Glucose 130 H Calcium 9.9 Urine Color Straw Urine Clarity Clear Urine pH 7.0 Ur Specific [place] 1.005 Urine Protein Negative Urine Glucose (UA) Normal Urine Ketones Negative Urine Occult Blood 250 H Urine Nitrite Negative Urine Bilirubin Negative Urine Urobilinogen Normal Ur Leukocyte Esterase Negative Urine RBC 0 SEEN Urine WBC 0 SEEN Ur Squamous Epith Cells 0 SEEN Urine Bacteria 0 SEEN Urine Mucus 0 SEEN Radiography Diagnostic Testing: Clinical Impression(s) from Imaging Studies Abdomen/Pelvis CT 10/29/21 01:42 IMPRESSION: 7 mm calculus involving the proximal left ureter. Associated moderate hydronephrosis with left renal enlargement and perinephric stranding. Findings are likely postobstructive but would correlate clinically to exclude any infection. Electronically Signed: Renzo Osorio MD at 2:27 EDT , Discharge Plan Triage Chief Complaint: Flank Pain ED Provider: Gasper [place] Dx/Rx/DC Orders Clinical Impression: Acute left flank pain, Kidney stone on left side Instructions: ED Kidney Stone w/ Colic Prescriptions: New oxycodone-acetaminophen [Percocet] 5-325 mg tablet 1 tab PO Q4H PRN (Reason: pain) 4 Days Qty: 14 RF: 0 No Action oxycodone-acetaminophen [Percocet] 5-325 mg tablet 1 tab PO Q6H PRN (Reason: pain) 3 Days Qty: 12 RF: 0 ketorolac 10 mg tablet 10 mg PO Q6H PRN (Reason: pain) 5 Days Qty: 20 RF: 0 tamsulosin [Flomax] 0.4 mg capsule 0.4 mg PO DAILY 14 Days Qty: 14 RF: 0 cephalexin 500 mg capsule 500 mg PO TID 7 Days Qty: 21 RF: 0 ondansetron 4 mg tablet,disintegrating 4 mg PO TID PRN PRN (Reason: nausea and vomiting) Qty: 21 RF: 0 Primary Care Provider: Care Physician,No Primary Referrals: Benjamín Cotton MD [STAFF PHYSICIAN] - 3-5 Days if not improving Care Physician,No Primary [Primary Care Provider] - Activity Restrictions/Additional Instructions: Plenty of fluids and rest. Toradol and Percocet for pain. If you are out of Toradol you may use Motrin or ibuprofen. Follow-up with your urologist. Return if increasing pain, intractable vomiting or fever. Disposition Disposition: Home, Self Care
[2021-10-29] MEDS: HYDROmorphone 1 MG/ML Syringe IV (01:23)
[2021-10-29] MEDS: 0.9% Normal Saline 1,000 ML 1000 ML IV (01:23)
[2021-10-29 01:30] LABS: Bacteria 0 SEEN /hpf (None Seen); Mucous, Urine 0 SEEN /hpf (<or=2+); Red Blood Cells-Urine 0 SEEN /hpf (0-5); Squamous Epithelial Cells - UA 0 SEEN /hpf (5-10); White Blood Cells 0 SEEN /hpf (0-5)
[2021-10-29 01:36] LABS: Color, Urine Straw (Yellow); Glucose, Dipstick Normal (Normal); Ketone-Dipstick Negative (Negative); Leukocyte Esterase-Dipstick Negative /ul (Negative); Nitrite-Dipstick Negative (Negative); Occult Blood-Urine 250 /ul (Negative); Protein-Dipstick Negative (Negative); Specific Gravity, Urine 1.005 (1.002-1.030); Urine Bilirubin Dipstick Negative (Negative); Urine Clarity Clear (Clear); Urine Urobilinogen Normal (Normal)
--- NOTE | 2021-10-29 01:42 | CT_ITS ---
EXAM: CT ABDOMEN AND PELVIS WITHOUT INTRAVENOUS CONTRAST CLINICAL INDICATION: Pain TECHNIQUE: Helically acquired images were obtained of the abdomen and pelvis without intravenous contrast. CTDIvol = ( 13.49 ) mGy, DLP = ( 677.28 ) mGycm This CT exam was performed using one or more of the following dose reduction techniques: automated exposure control, adjustment of the mA and/or kV according to patient size, and/or use of iterative reconstruction technique. This report was created using [employer] report generation technology. COMPARISON: None. FINDINGS: LOWER THORAX: Unremarkable. Lung bases are clear. No cardiomegaly. No significant pericardial effusion. ABDOMEN: LIVER: Unremarkable. Homogeneous. GALLBLADDER AND BILE DUCTS: Unremarkable. No calcified gallstones. No gallbladder distention or wall edema. No intra- or extrahepatic biliary ductal dilation. PANCREAS: Unremarkable. No focal cystic mass. SPLEEN: Unremarkable. Normal size without focal cystic or solid mass. ADRENALS: Unremarkable. No nodules. KIDNEYS AND URETERS: 1.6 cm calyceal calculus at the lower pole of the left kidney is nonobstructing. 7 mm calculus involving the proximal left ureter. Associated moderate hydronephrosis with left renal enlargement and perinephric stranding. Findings are likely postobstructive but would correlate clinically to exclude any infection. STOMACH AND BOWEL: Unremarkable. No stomach or bowel distention. No focal inflammatory change. PELVIS: APPENDIX: No evidence of acute appendicitis. BLADDER: Unremarkable. REPRODUCTIVE: Unremarkable as visualized. No mass. ABDOMEN and PELVIS: INTRAPERITONEAL SPACE: Unremarkable. No ascites or other fluid collection. No free air. BONES/JOINTS: No suspicious lytic or sclerotic lesions of bone. SOFT TISSUES: Unremarkable. No discrete abdominal or pelvic wall hernia. VASCULATURE: Unremarkable. Abdominal aorta is non-dilated. LYMPH NODES: Unremarkable. No enlarged lymph nodes. CT/Abdomen/Pelvis without Cont IMPRESSION: 7 mm calculus involving the proximal left ureter. Associated moderate hydronephrosis with left renal enlargement and perinephric stranding. Findings are likely postobstructive but would correlate clinically to exclude any infection. Electronically Signed: Renzo Osorio MD at 2:27 EDT Reading Location ID and State: [facility] / [place] Tel , Service support ,
[2021-10-29 01:49] LABS: Anion Gap 5 (5-15); BUN 15 mg/dL (7-18); BUN/Creat Ratio 15.4 RATIO (10-20); Calcium,Total 9.9 mg/dL (8.5-10.1); Chloride 102 mmol/L (98-107); Creatinine, Serum 0.98 mg/dL (0.55-1.02); EST Glomerular Filtration Rate 64 mL/min (>60); Est Glom Filt Rate - Afr Amer 77 mL/min (>60); Estimated Creatinine Clearance 58.65 ml/min; Glucose 130 mg/dL (74-106); Potassium 4.2 mmol/L (3.5-5.1); Sodium Level 137 mmol/L (136-145)
[2021-10-29 02:50] VITALS: BP 160/88; PULSE 86; RESP 18; O2SAT 98
[2021-10-29] MEDS: HYDROmorphone 0.5 MG/0.5 ML SYRINGE IV (02:54)
== END 2021-10-29 03:04 | disposition home or self-care (01) ==
PROVIDERS: Emergency Provider Emergency Medicine; Visit Provider Emergency Medicine
DX: N13.2 Hydronephrosis with renal and ureteral calculous obstruction (principal); R10.9 Unspecified abdominal pain; Z87.442 Personal history of urinary calculi
CPT/HCPCS: 74176; 80048; 81001; 96361; 96374; 96376; 99284; J7030; A4216

== ENCOUNTER 2021-11-20 20:01 | Emergency (ER) | payer OTHER, SELFPAY ==
[2021-11-20 20:02] VITALS: BP 158/109; PULSE 86; RESP 15; TEMP 36.1; O2SAT 97; BMI 29.2
--- NOTE | 2021-11-20 20:12 | CT_ITS ---
STUDY: CT ABDOMEN AND PELVIS WITHOUT CONTRAST REASON FOR EXAM: Female, 51 years old. Left flank pain RADIATION DOSAGE (If Supplied By Facility): CTDIvol = ( 10.89 ) mGy, DLP = ( 643.24 ) mGycm TECHNIQUE: Transaxial images were obtained from the dome of the diaphragm to the symphysis pubis without oral contrast, and without intravenous contrast. Sagittal and coronal images were reconstructed. Individualized dose optimization techniques were used for this CT. COMPARISON: 10/29/2021 FINDINGS: The visualized lung bases are unremarkable. The visualized portions of the heart are within normal limits. Normal liver. There is non-visualization of the gallbladder, which may be secondary to either contraction or a prior cholecystectomy. Normal spleen. Normal pancreas. Normal bilateral adrenal glands. Right kidney is free of obstructive uropathy or suspicious solid renal lesion. Left kidney shows stable hydronephrosis and hydroureter with a stable 1.6 cm calcification in the left UPJ. There is also a 4.5 mm nonobstructing stone present. There is a stable 1 cm stone in the proximal left ureter seen on coronal region on image 66 There is a small hiatal hernia. Normal small intestine. Normal colon. There are surgical clips in the region of the appendix consistent with a prior appendectomy. Normal abdominal aorta. Normal inferior vena cava. Normal retroperitoneum. Normal urinary bladder. Normal visualized uterus. Normal abdominal wall. Degenerative changes throughout the lumbar spine and pelvis with a stable compression fracture of the superior endplate of L1. CT/Abdomen/Pelvis without Cont IMPRESSION: Stable left hydronephrosis and hydroureter with a stable 1 cm stone in the proximal left ureter on coronal reconstructed image 66 Stable nonobstructing left renal stones largest measures 1.6 cm Small hiatal hernia No free intraperitoneal fluid, air, or suspicious adenopathy there has been a previous appendectomy No significant interval change Electronically Signed: Anthony Betts MD at 21:23 EDT ,
--- NOTE | 2021-11-20 20:13 | EDS_ITS ---
HPI History of Present Illness Chief Complaint: Flank Pain Detail of Chief Complaint: Left flank pain that started 4 to 5 days ago Informant: patient Narrative Narrative: Patient has history of kidney stones and has worsening flank pain x4 to 5 days. Patient has had nausea. She denies vomiting. She denies dysuria but feels pressure up towards her left kidney. Patient denies any fevers. Prior similar symptoms: Yes PFSH PFSH Medical History Kidney calculi Home Medications cephalexin 500 mg PO TID 7 Days #21 cap 10/20/21 [Rx Last Taken Unknown] ketorolac 10 mg PO Q6H PRN 5 Days #20 tab 10/20/21 [Rx Last Taken Unknown] ondansetron 4 mg PO TID PRN PRN #21 tab 10/20/21 [Rx Last Taken Unknown] oxycodone-acetaminophen [Percocet] 1 tab PO Q6H PRN 3 Days #12 tab 10/20/21 [Rx Last Taken Unknown] tamsulosin [Flomax] 0.4 mg PO DAILY 14 Days #14 cap 10/20/21 [Rx Last Taken Unknown] oxycodone-acetaminophen [Percocet] 1 tab PO Q4H PRN 4 Days #14 tab 10/29/21 [Rx Last Taken Unknown] ketorolac 10 mg PO Q8H PRN 5 Days #15 tab 11/20/21 [Rx Last Taken Unknown] naproxen 500 mg PO BID PRN #14 tab 11/20/21 [Rx Last Taken Unknown] ondansetron 4 mg PO Q8H PRN PRN #10 tab 11/20/21 [Rx Last Taken Unknown] oxycodone-acetaminophen 1 tab PO Q6H PRN PRN 5 Days #20 tablet 11/20/21 [Rx Last Taken Unknown] Allergy/AdvReac Type Severity Reaction Status Date / Time morphine AdvReac Swelling Verified 11/20/21 20:03 Social History Smoking Status: Never smoker ROS ROS ED Constitutional Constitutional ED: Reports systems reviewed and no addt'l complaints, except as documented; Denies body ache(s), change in weight or chills Eyes Eyes: Denies acute decrease in peripheral vision, change in vision, double vision or loss of vision ENT ENT ED: Reports none; Denies ear pain, lip swelling, loss taste/smell, neck pain, otalgia or sore throat Cardiovascular Cardiovascular: Reports none; Denies abdominal pain, chest pain with activity, leg edema, lightheadedness, palpitations, rapid heart rate or syncope Respiratory/Chest Respiratory/Chest: Reports none; Denies change in mental status, dry cough, dyspnea, hemoptysis, shortness of breath at rest or shortness of breath with exertion Gastrointestinal Gastrointestinal: Reports none, abdominal pain and nausea; Denies change in stool character, diarrhea, hematemesis, hematochezia, melena, rectal bleeding or vomiting Genitourinary Genitourinary ED: Reports none; Denies abdominal discomfort, anuria, dysuria, genital pain or polyuria Musculoskeletal Musculoskeletal: Reports none and back pain; Denies arthralgias, difficulty walking, extremity pain, muscle weakness or myalgias Integumentary Reports none; Denies abscess or rash Neurologic Neurologic: Reports none; Denies abnormal gait, confusion, focal weakness, frequent falls, headache(s), loss of vision, numbness, paresthesias, radicular pain, vertigo or weakness Psychiatric Psychiatric: Reports systems reviewed and no addt'l complaints, except as documented and none; Denies behavioral changes, confusion, difficulty concentrating, hallucinations, suicidal ideation, tactile hallucinations or visual hallucinations Endocrine Endocrinology: Denies none, cold intolerance, excessive sweating, fatigue or heat intolerance Hematologic/Lymphatic Hematologic/Lymphatic: Reports none; Denies anemia, easy bleeding or easy bruising Allergic/Immunologic Allergic/Immunologic ED: Denies as per HPI, none, lip swelling, mouth swelling, throat swelling, tongue swelling or hives EXAM Physical Exam Const Vital Signs: 11/20/21 20:02 11/20/21 20:57 Temperature 96.9 F L Temperature Source Temporal Pulse Rate 86 86 Respiratory Rate 15 14 Blood Pressure 158/109 H 130/74 H Blood Pressure Mean 125 92 Pulse Ox 97 95 Oxygen Delivery Method Room Air Room Air Positive well nourished and well developed General Appearance ED: well developed and NAD HEENT Reports TM's clear and moist mucous membranes normocephalic and atraumatic; Negative for trauma or tenderness Tympanic Membrane ED: Yes TM's clear Eyes PERRL and EOMs intact bilaterally General Eye ED: Negative for pale conjunctiva or scleral icterus Neck no lymphadenopathy, supple and no JVD General: Negative for tenderness Chest Wall inspection of chest normal and palpation of chest normal Chest: Negative for tenderness Resp normal respiratory effort and clear to auscultation bilaterally Effort and Inspection: Negative for respiratory distress or pain with movement Auscultation: Negative for rhonchi, wheezes or diminished lung sounds Cardio regular rate, regular rhythm, S1 normal heart sound, S2 normal heart sound and no murmurs Peripheral Pulses: pulses 2+ throughout GI normal to inspection, nondistended, normoactive bowel sounds, soft to palpation, non-distended and no masses GI Narrative: Mild tenderness to left lower quadrant some guarding. There is no rebound, rigidity, or peritoneal signs Back/Spine no thoracic nor lumbar tenderness Back/Spine Narrative: CVA tenderness on the left Extremity normal to inspection General Extremety ED: Negative for edema General Extremity: Negative for edema Neuro oriented x3, CN's II-XII intact bilaterally, no sensory deficits noted and gait normal Sensorium / Orientation: awake, alert, oriented to person, oriented to place and oriented to time Motor Exam: strength 5/5 throughout and strength abnormal Psych mental status grossly normal Skin no rashes or lesions noted and no wounds MDM MDM MDM Narrative Medical decision making narrative: IV line established on arrival. Patient was medicated with Toradol, Dilaudid, and Zofran. She initially had good pain relief with this. Work-up was significant for slightly elevation in her creatinine at 1.19. Patient has slightly elevated white blood cell count of 12.3. Urinalysis was unremarkable. CT flank was unchanged when compared with CT from October. Patient has a 1 cm ureteral stone proximal ureter that really has not moved since her last study. Discussed multiple options with patient and her significant other. Recommended admission for pain control evaluation by urology however we do not have urology coverage here till November 28. I offered to transfer them to another facility that has urology coverage. Patient does not want to have another stent she states she had a miserable experience last time she had a ureteral stent. Patient does not want to be admitted or transferred anywhere at this time but would like to follow-up as an outpatient with urology. Patient states that she had an appointment with urology several weeks ago but canceled it because she was feeling better. Patient will be given a prescription for Naprosyn and Percocet. Patient advised return if worsening pain, fever, vomiting, or conditions worsen anyway. Patient understands that the stone is large and I do not feel that she will be able to pass it on her own without some type of intervention. I also explained that she has a slight elevation in her creatinine which I suspect is likely related to the obstructed ureter and her kidney function could potentially worsen. Lab Data Attestation: I reviewed the patient's lab results. Labs: Laboratory Results - last 24 hr 11/20/21 11/20/21 11/20/21 20:24 20:24 20:24 WBC 12.3 H RBC 4.73 Hgb 14.3 Hct 42.9 MCV 90.7 MCH 30.2 MCHC 33.3 RDW Std Deviation 43.1 RDW Coeff of Nasrin 13.0 Plt Count 358 MPV 10.8 Immature Gran % (Auto) 0.300 Neut % (Auto) 53.3 Lymph % (Auto) 34.3 [place] % (Auto) 7.4 Eos % (Auto) 4.0 Baso % (Auto) 0.7 Absolute Neuts (auto) 6.6 Absolute Lymphs (auto) 4.22 Nucleated RBC % 0 Sodium 143 Potassium 4.2 Chloride 107 Carbon Dioxide 32.0 Anion Gap 4 L BUN 16 Creatinine 1.19 H Estim Creat Clear Calc 48.30 Est GFR (MDRD) Af Amer 61 Est GFR (MDRD) Non-Af 51 L BUN/Creatinine Ratio 13.4 Glucose 99 Calcium 9.6 Urine Color Yellow Urine Clarity Clear Urine pH 6.5 Ur Specific [place] 1.010 Urine Protein 15 H Urine Glucose (UA) Normal Urine Ketones Negative Urine Occult Blood 50 H Urine Nitrite Negative Urine Bilirubin Negative Urine Urobilinogen Normal Ur Leukocyte Esterase 100 H Urine RBC 0 SEEN Urine WBC 0-5 SEEN Ur Squamous Epith Cells 0-5 SEEN Urine Bacteria 0 SEEN Urine Mucus 0 SEEN Radiography Diagnostic Testing: Clinical Impression(s) from Imaging Studies Abdomen/Pelvis CT 11/20/21 20:12 IMPRESSION: Stable left hydronephrosis and hydroureter with a stable 1 cm stone in the proximal left ureter on coronal reconstructed image 66 Stable nonobstructing left renal stones largest measures 1.6 cm Small hiatal hernia No free intraperitoneal fluid, air, or suspicious adenopathy there has been a previous appendectomy No significant interval change Electronically Signed: Anthony Betts MD at 21:23 EDT , Discharge Plan Triage Chief Complaint: Flank Pain ED Provider: Ama Rosenberg Dx/Rx/DC Orders Clinical Impression: Urolithiasis Instructions: ED Kidney Stone w/ Colic Prescriptions: New naproxen 500 MG tablet 500 mg PO BID PRN (Reason: pain) Qty: 14 RF: 0 ondansetron [ondansetron] 4 MG tablet 4 mg PO Q8H PRN PRN (Reason: Nausea) Qty: 10 RF: 0 oxycodone-acetaminophen [oxycodone-acetaminophen] 1 TABLET tablet 1 tab PO Q6H PRN PRN (Reason: pain) 5 Days Qty: 20 RF: 0 ketorolac 10 mg tablet 10 mg PO Q8H PRN (Reason: pain) 5 Days Qty: 15 RF: 0 No Action oxycodone-acetaminophen [Percocet] 5-325 mg tablet 1 tab PO Q6H PRN (Reason: pain) 3 Days Qty: 12 RF: 0 ketorolac 10 mg tablet 10 mg PO Q6H PRN (Reason: pain) 5 Days Qty: 20 RF: 0 tamsulosin [Flomax] 0.4 mg capsule 0.4 mg PO DAILY 14 Days Qty: 14 RF: 0 cephalexin 500 mg capsule 500 mg PO TID 7 Days Qty: 21 RF: 0 ondansetron 4 mg tablet,disintegrating 4 mg PO TID PRN PRN (Reason: nausea and vomiting) Qty: 21 RF: 0 oxycodone-acetaminophen [Percocet] 5-325 mg tablet 1 tab PO Q4H PRN (Reason: pain) 4 Days Qty: 14 RF: 0 Primary Care Provider: Care Physician,No Primary Referrals: Benjamín Cotton MD [STAFF PHYSICIAN] - As soon as possible Care Physician,No Primary [Primary Care Provider] - Disposition Disposition: Home, Self Care
[2021-11-20] MEDS: Ondansetron 4 MG/2 ML Vial IV (20:24)
[2021-11-20] MEDS: Ketorolac 15 MG/ML Vial IV (20:25)
[2021-11-20] MEDS: 0.9% Normal Saline 1,000 ML 150 ML IV (20:27)
[2021-11-20 20:28] LABS: Bacteria 0 SEEN /hpf (None Seen); Mucous, Urine 0 SEEN /hpf (<or=2+); Red Blood Cells-Urine 0 SEEN /hpf (0-5)
[2021-11-20] MEDS: HYDROmorphone 1 MG/ML Syringe IV ×2 (20:28→21:41)
[2021-11-20 20:30] LABS: Absolute Lymphocyte Count 4.22 X10^3/uL (0.83-4.51); Absolute Neutrophil Count 6.6 X10^3/uL (2.0-7.7); Basophil# 0.09 X10^3/uL; Basophil% 0.7 % (0-1); Eosinophil# 0.49 X10^3/uL; Hematocrit 42.9 % (37-47); Hemoglobin 14.3 g/dL (12.0-15.0); Lymphocyte # 4.22 X10^3/ul (0.83-4.51); Lymphocyte % 34.3 % (19-41); Mean Corp Hgb Conc 33.3 g/dL (32-36); Mean Corpuscular Hgb 30.2 pg (27.0-32.0); Mean Corpuscular Volume 90.7 fL (81-99); Mean Platelet Vol. 10.8 fl (6.2-12.0); Monocyte# 0.91 X10^3/uL; Monocyte% 7.4 % (0-10); NRBC Flagged by Analyzer 0 % (0-5); Neutrophil # 6.56 X10^3/uL (2.7-7.7); Neutrophil % 53.3 % (47-70); Platelet Count 358 K/mm3 (150-450); RBC Distribution Width SD 43.1 fl (35.1-43.9); Red Blood Count 4.73 M/mm3 (4.2-5.4); White Blood Count 12.3 K/mm3 (4.4-11.0)
[2021-11-20 20:33] LABS: Color, Urine Yellow (Yellow); Glucose, Dipstick Normal (Normal); Ketone-Dipstick Negative (Negative); Leukocyte Esterase-Dipstick 100 /ul (Negative); Nitrite-Dipstick Negative (Negative); Occult Blood-Urine 50 /ul (Negative); Protein-Dipstick 15 mg/dl (Negative); Urine Bilirubin Dipstick Negative (Negative); Urine Clarity Clear (Clear); Urine Urobilinogen Normal (Normal); Urine pH 6.5 (5.0 - 8.0)
[2021-11-20 20:39] LABS: Squamous Epithelial Cells - UA 0-5 SEEN /hpf (5-10); White Blood Cells 0-5 SEEN /hpf (0-5)
[2021-11-20 20:57] VITALS: BP 130/74; PULSE 86; RESP 14; O2SAT 95
[2021-11-20 21:00] LABS: Anion Gap 4 (5-15); BUN 16 mg/dL (7-18); BUN/Creat Ratio 13.4 RATIO (10-20); Calcium,Total 9.6 mg/dL (8.5-10.1); Chloride 107 mmol/L (98-107); Creatinine, Serum 1.19 mg/dL (0.55-1.02); EST Glomerular Filtration Rate 51 mL/min (>60); Est Glom Filt Rate - Afr Amer 61 mL/min (>60); Glucose 99 mg/dL (74-106); Potassium 4.2 mmol/L (3.5-5.1); Sodium Level 143 mmol/L (136-145)
[2021-11-20 22:05] VITALS: PULSE 96; RESP 16; O2SAT 100
== END 2021-11-20 22:38 | disposition home or self-care (01) ==
PROVIDERS: Emergency Provider Emergency Medicine; Visit Provider Emergency Medicine
DX: N13.2 Hydronephrosis with renal and ureteral calculous obstruction (principal); Z79.899 Other long term (current) drug therapy; Z87.442 Personal history of urinary calculi
CPT/HCPCS: 74176; 80048; 81001; 85025; 96361; 96374; 96375; 96376; 99283; J7030; A4216; J2405

== ENCOUNTER 2021-12-09 13:59 | Day surgery (SDC) | payer OTHER, SELFPAY ==
[2021-12-09] VITALS (9 sets, daily range): BP systolic 144–168; BP diastolic 91–100; PULSE 85–107; RESP 16; TEMP 36.4–36.6; O2SAT 91–100; BMI 30.9
[2021-12-09] MEDS: Lactated Ringers 1,000 ML 15 ML IV ×2 (14:32→17:37)
--- NOTE | 2021-12-09 15:22 | OP.PCM_ITS ---
Problems Associated Problem List Diagnoses (1) Calculus of left kidney: (2) Left ureteral calculus: (3) Hydronephrosis: Report of Operation Date of Procedure: 12/09/21 Pre-Operative Diagnosis: Left ureteral and renal calculi, hydronephrosis Post-Operative Diagnosis: Same Surgery/Procedure Performed:: Cystoscopy, left ureteral stent insertion, left renal extracorporal shockwave lithotripsy Surgeon: Ninfa Madrigal Type of Anesthesia: General Description of Procedure: The patient is a 51-year-old female who has had an obstructing stone in her left proximal ureter for the last 2 months and the pain is so bad she has now decided to present for management. Informed consent was obtained and the patient agreed to proceed with surgical intervention. The patient was taken to the operating room and placed on the operating room table. Anesthesia monitored the head, neck, airway, IV access and vital signs throughout the case. Once anesthesia was appropriate ministered the patient was placed into dorsal lithotomy position was prepped and draped in usual sterile fashion. The cystoscope was inserted through the urethra under direct visualization into the urinary bladder which was visualized in its entirety. There were no abnormalities identified of the anatomy or the bladder mucosa. The left ureteral orifice was intubated with a 0.035 Glidewire which pushed the ureteral calculus into the kidney. A 6 [place]alan 24 cm JJ stent was then inserted over the wire with good curling in the renal pelvis as well as the urinary bladder. At this time the patient was realigned on the lithotripter table. The stones were easily visible. A total of 3000 shocks were applied and the patient tolerated the procedure well. She was awakened and taken to the recovery room in good condition. There were no complications during this procedure. Grafts/Implants Used: 6 x 24 JJ stent Complications none Admit VTE Documentation VTE Present on Admission: Yes VTE Mechan Device Prophylaxis: SCD's VTE Pharm Prophylaxis ordered?: No Reason prophylaxis not ordered:: Treatment Not Indicated
--- NOTE | 2021-12-09 15:24 | PCM.DC ---
Discharge Instructions Diet Discharge Diet: No restrictions Activity Discharge Activity: Return to Normal Activity and [address] (When not taking pain medication) Dressing / Incision Call your doctor if you observe: Fever of 101 or Higher, Inability to urinate and Inability to have a bowel movement Follow Up Care Please Follow Up With: Ninfa Madrigal MD When: Call the office for appointment Test Results: Test results from this visit will be discussed in further detail at your follow-up appointment, if applicable. Discharge Plan Admission Attending Provider: Ninfa Madrigal Primary Care Provider: Care PhysicianLigia Primary Discharge Orders/Prescriptions Prescriptions: New cephalexin [cephalexin] 500 MG capsule 500 mg PO Q12 3 Days Qty: 6 RF: 0 phenazopyridine [Pyridium] 200 MG tablet 200 mg PO TID PRN PRN (Reason: Bladder Spasms) 7 Days Qty: 30 RF: 0 oxycodone-acetaminophen [oxycodone-acetaminophen] 1 TABLET tablet 2 tab PO Q8H PRN PRN (Reason: Pain) 7 Days Qty: 20 RF: 0 ondansetron HCl [ondansetron HCl] 8 MG tablet 8 mg PO Q8H PRN PRN (Reason: Nausea) 7 Days Qty: 20 RF: 0 Continued oxycodone-acetaminophen [Percocet] 5-325 mg tablet 1 tab PO Q6H PRN (Reason: pain) 3 Days Qty: 12 RF: 0 ketorolac 10 mg tablet 10 mg PO Q6H PRN (Reason: pain) 5 Days Qty: 20 RF: 0 tamsulosin [Flomax] 0.4 mg capsule 0.4 mg PO DAILY 14 Days Qty: 14 RF: 0 ondansetron 4 mg tablet,disintegrating 4 mg PO TID PRN PRN (Reason: nausea and vomiting) Qty: 21 RF: 0 naproxen 500 MG tablet 500 mg PO BID PRN (Reason: pain) Qty: 14 RF: 0 multivitamin Tablet 1 tab PO DAILY RF: 0 Referrals / Follow Up: Care Physician,Ligia Primary [Primary Care Provider] - Disposition Disposition (needs filled in before D/C Order can be placed): Home, Self Care
[2021-12-09] MEDS: Cefazolin 2 GM in 0.9% Normal Saline 100 ML IV (16:14)
[2021-12-09] MEDS: Phenazopyridine 95 MG Tablet 190 MG PO (18:01)
== END 2021-12-09 19:30 | disposition home or self-care (01) ==
LOC: SDC 14:01 → AC 14:03
PROVIDERS: Visit Provider Urology
PROC: (CPT 50590; principal; 2021-12-09 15:50)
DX: N13.2 Hydronephrosis with renal and ureteral calculous obstruction (principal); Z87.442 Personal history of urinary calculi
CPT/HCPCS: 52332; 00873; 87426; J7120; C2617; J2405

== ENCOUNTER → 2021-12-12 | Outpatient (CLI) | payer OTHER, SELFPAY ==
--- NOTE | 2021-12-12 09:32 | RAD_ITS ---
STUDY: X-RAY - ABDOMEN/PELVIS REASON FOR EXAM: Female, 51 years old. KIDNEY STONE TECHNIQUE: COMPARISON: None. FINDINGS: Normal visualized lung bases. There is an unremarkable bowel gas pattern. There is no demonstrated free abdominal air. The visualized liver, spleen and kidneys are grossly normal in size and morphology. There is a left ureteral stent. Normal soft tissue structures. Normal visualized osseous structures. RAD/Abdomen Single View IMPRESSION: Normal x-ray examination of the abdomen and pelvis.. There is a left ureteral stent. Electronically Signed: Alberto Betancourt MD at 1:47 EDT ,
== END | disposition home or self-care (01) ==
LOC: MTRAD 09:30
PROVIDERS: PCP Internal Medicine; Referring Provider Urology; Visit Provider Urology
DX: N20.0 Calculus of kidney (principal)
CPT/HCPCS: 74018

== ENCOUNTER 2021-12-15 07:14 | Emergency (ER) | payer OTHER, SELFPAY ==
[2021-12-15 07:16] VITALS: BP 155/89; PULSE 89; RESP 14; TEMP 36.8; O2SAT 94; BMI 30.3
--- NOTE | 2021-12-15 07:29 | ED.VIS.FEGU ---
HPI HPI - Female History of Present Illness Chief Complaint: Flank Pain Narrative Narrative: 51-year-old female with left-sided flank pain. She states she had lithotripsy and a stent placed on the left by Dr. Madrigal on Sunday. She reports that the stone was about an inch. She states it is currently about half that size. She had tarted having nausea and vomiting last night. Patient states he is on Percocet and has not been given something to have bowel movements. She is having bowel movements starting again however she has been somewhat constipated. Denies urinary complaints currently. No fever or chills. She does express that she has nausea and vomiting which is not controlled with Zofran. Patient sent in by urology for evaluation and pain control [facility] Medical History Alcohol use Anxiety Arthritis Calculus of left kidney Heartburn History of echocardiogram History of kidney stones History of stress test Hydronephrosis Kidney calculi Left ureteral calculus Non-smoker PONV (postoperative nausea and vomiting) Wears glasses Home Medications ondansetron 4 mg PO TID PRN PRN #21 tab 10/20/21 [Rx Last Taken Unknown] oxycodone-acetaminophen [Percocet] 1 tab PO Q6H PRN 3 Days #12 tab 10/20/21 [Rx Last Taken Unknown] multivitamin 1 tab PO DAILY 12/08/21 [History Last Taken Unknown] ondansetron HCl 8 mg PO Q8H PRN PRN 7 Days #20 tablet 12/09/21 [Rx Last Taken Unknown] oxycodone-acetaminophen 2 tab PO Q8H PRN PRN 7 Days #20 tab 12/09/21 [Rx Last Taken Unknown] phenazopyridine [Pyridium] 200 mg PO TID PRN PRN 7 Days #30 tab 12/09/21 [Rx Last Taken Unknown] promethazine 25 mg PO TID PRN #14 tab 12/15/21 [Rx Last Taken Unknown] promethazine 25 mg ME Q6H PRN #12 ea 12/15/21 [Rx Last Taken Unknown] Allergy/AdvReac Type Severity Reaction Status Date / Time morphine AdvReac Swelling Verified 12/15/21 07:16 Surgical History History of appendectomy History of cholecystectomy History of oophorectomy Hx of lithotripsy Social History Smoking Status: Never smoker ROS ROS ED Constitutional Constitutional ED: Denies chills or fever(s) Eyes Eyes: Denies blurry vision or change in vision ENT ENT ED: Denies rhinorrhea or sore throat Cardiovascular Cardiovascular: Denies chest pain or palpitations Respiratory/Chest Respiratory/Chest: Denies cough, dyspnea or stridor Gastrointestinal Gastrointestinal: Reports abdominal pain, constipation, nausea and vomiting; Denies diarrhea Genitourinary Genitourinary ED: Denies dysuria or hematuria Musculoskeletal Musculoskeletal: Reports other Details: Left flank pain ; Denies myalgias Integumentary Denies abscess or rash Neurologic Neurologic: Denies headache(s) or weakness Psychiatric Psychiatric: Denies anxiety or depression EXAM Physical Exam Const Vital Signs: 12/15/21 07:16 12/15/21 08:17 12/15/21 09:00 Temperature 98.2 F 97.9 F 98.0 F Temperature Source Temporal Oral Oral Pulse Rate 89 68 76 Respiratory Rate 14 16 16 Blood Pressure 155/89 H 143/79 H 135/75 H Blood Pressure Mean 111 100 95 Pulse Ox 94 94 Oxygen Delivery Method Room Air Room Air Room Air 12/15/21 10:00 Temperature 97.8 F Temperature Source Oral Pulse Rate 78 Respiratory Rate 16 Blood Pressure 143/81 H Blood Pressure Mean 101 Pulse Ox 94 Oxygen Delivery Method Room Air Positive well nourished General Appearance ED: NAD HEENT Reports moist mucous membranes Negative for trauma Eyes PERRL and EOMs intact bilaterally Resp normal respiratory effort and clear to auscultation bilaterally Cardio regular rate and regular rhythm GI Palpation: tender LLQ and LUQ Back/Spine General Back: CVA tenderness left Extremity normal to inspection Neuro oriented x3 and CN's II-XII intact bilaterally Sensorium / Orientation: alert Motor Exam: strength 5/5 throughout Psych mental status grossly normal Mood & Affect: tearful Skin no rashes or lesions noted and no wounds MDM MDM MDM Narrative Medical decision making narrative: Patient presenting with persistent nausea and vomiting and left flank pain. She was given Dilaudid 1 mg and Haldol and this did control her pain and nausea. I obtained blood work and her CBC and BMP are unremarkable. Urinalysis negative for infection but does show occult blood. Urology did request a KUB which was performed and on my interpretation does show persistence of calcifications in the left proximal ureter. The radiologist does agree and states this is near the L3 vertebral body. There does not appear to be any renal calculi. This was discussed with Dr. Madrigal, who actually called and spoke with the patient at bedside and patient was then comfortable going home. I will prescribe her Phenergan p.o. and rectal to help her control her nausea. She has narcotic pain medication at home. Urology will follow up on Sunday to have repeat imaging with a KUB. If there is any new or worsening symptoms the patient will return to the ER. Patient stable for discharge. Impression: 1. Left-sided ureteral calculi 2. Hematuria 3. Nausea/vomiting Lab Data Attestation: I reviewed the patient's lab results. Labs: Laboratory Results - last 24 hr 12/15/21 12/15/21 12/15/21 07:20 07:54 07:54 WBC 8.9 RBC 4.75 Hgb 14.1 Hct 42.6 MCV 89.7 MCH 29.7 MCHC 33.1 RDW Std Deviation 43.8 RDW Coeff of Nasrin 13.4 Plt Count 347 MPV 10.4 Immature Gran % (Auto) 0.700 Neut % (Auto) 75.1 H Lymph % (Auto) 15.9 L [place] % (Auto) 5.9 Eos % (Auto) 1.7 Baso % (Auto) 0.7 Absolute Neuts (auto) 6.7 Absolute Lymphs (auto) 1.42 Nucleated RBC % 0 Sodium 144 Potassium 4.0 Chloride 111 H Carbon Dioxide 28.0 Anion Gap 5 BUN 10 Creatinine 0.71 Estim Creat Clear Calc 80.95 Est GFR (MDRD) Af Amer 111 Est GFR (MDRD) Non-Af 92 BUN/Creatinine Ratio 14.0 Glucose 131 H Calcium 9.2 Urine Color Yellow Urine Clarity Sl. Cloudy Urine pH 8.0 Ur Specific Laura 1.015 Urine Protein 30 H Urine Glucose (UA) Normal Urine Ketones 5 H Urine Occult Blood 250 H Urine Nitrite Negative Urine Bilirubin Negative Urine Urobilinogen Normal Ur Leukocyte Esterase 100 H Urine RBC 25-50 SEEN Urine WBC 0 SEEN Ur Squamous Epith Cells 0 SEEN Urine Bacteria 0 SEEN Urine Mucus 0 SEEN Radiography Diagnostic Testing: Clinical Impression(s) from Imaging Studies KUB X-Ray 12/15/21 08:33 IMPRESSION: Status post left double-J stent catheter. Persistent calcific density seen within the proximal portion of the left ureter overlying the transverse processes of the L3 vertebrae on the left side. This is unchanged. Electronically Signed: Frandy Villegas MD at 8:55 EDT , Discharge Plan Triage Chief Complaint: Flank Pain ED Provider: Zaki Farnsworth Dx/Rx/DC Orders Instructions: ED Kidney Stone w/ Colic Prescriptions: New promethazine 25 mg suppository 25 mg ME Q6H PRN (Reason: nausea and vomiting) Qty: 12 RF: 0 promethazine 25 mg tablet 25 mg PO TID PRN (Reason: nausea and vomiting) Qty: 14 RF: 0 No Action oxycodone-acetaminophen [Percocet] 5-325 mg tablet 1 tab PO Q6H PRN (Reason: pain) 3 Days Qty: 12 RF: 0 ondansetron 4 mg tablet,disintegrating 4 mg PO TID PRN PRN (Reason: nausea and vomiting) Qty: 21 RF: 0 multivitamin Tablet 1 tab PO DAILY RF: 0 phenazopyridine [Pyridium] 200 MG tablet 200 mg PO TID PRN PRN (Reason: Bladder Spasms) 7 Days Qty: 30 RF: 0 oxycodone-acetaminophen [oxycodone-acetaminophen] 1 TABLET tablet 2 tab PO Q8H PRN PRN (Reason: Pain) 7 Days Qty: 20 RF: 0 ondansetron HCl [ondansetron HCl] 8 MG tablet 8 mg PO Q8H PRN PRN (Reason: Nausea) 7 Days Qty: 20 RF: 0 Primary Care Provider: Gaby Limon Referrals: Ninfa Madrigal MD [STAFF PHYSICIAN] - As Needed Gaby Limon DO [Primary Care Provider] - Disposition Disposition: Home, Self Care
[2021-12-15 07:42] LABS: Bacteria 0 SEEN /hpf (None Seen); Mucous, Urine 0 SEEN /hpf (<or=2+); Squamous Epithelial Cells - UA 0 SEEN /hpf (5-10); White Blood Cells 0 SEEN /hpf (0-5)
[2021-12-15 07:44] LABS: Color, Urine Yellow (Yellow); Glucose, Dipstick Normal (Normal); Ketone-Dipstick 5 mg/dl (Negative); Leukocyte Esterase-Dipstick 100 /ul (Negative); Nitrite-Dipstick Negative (Negative); Occult Blood-Urine 250 /ul (Negative); Protein-Dipstick 30 mg/dl (Negative); Specific Gravity, Urine 1.015 (1.002-1.030); Urine Bilirubin Dipstick Negative (Negative); Urine Clarity Sl. Cloudy (Clear); Urine Urobilinogen Normal (Normal)
[2021-12-15 07:58] LABS: Red Blood Cells-Urine 25-50 SEEN /hpf (0-5)
[2021-12-15 08:04] LABS: Absolute Lymphocyte Count 1.42 X10^3/uL (0.83-4.51); Absolute Neutrophil Count 6.7 X10^3/uL (2.0-7.7); Basophil# 0.06 X10^3/uL; Basophil% 0.7 % (0-1); Eosinophil# 0.15 X10^3/uL; Eosinophils% 1.7 % (0-5); Hematocrit 42.6 % (37-47); Hemoglobin 14.1 g/dL (12.0-15.0); Lymphocyte # 1.42 X10^3/ul (0.83-4.51); Lymphocyte % 15.9 % (19-41); Mean Corp Hgb Conc 33.1 g/dL (32-36); Mean Corpuscular Hgb 29.7 pg (27.0-32.0); Mean Corpuscular Volume 89.7 fL (81-99); Mean Platelet Vol. 10.4 fl (6.2-12.0); Monocyte# 0.53 X10^3/uL; Monocyte% 5.9 % (0-10); NRBC Flagged by Analyzer 0 % (0-5); Neutrophil # 6.71 X10^3/uL (2.7-7.7); Neutrophil % 75.1 % (47-70); Platelet Count 347 K/mm3 (150-450); RBC Distribution Width CV 13.4 % (11.6-14.6); RBC Distribution Width SD 43.8 fl (35.1-43.9); Red Blood Count 4.75 M/mm3 (4.2-5.4); White Blood Count 8.9 K/mm3 (4.4-11.0)
[2021-12-15] MEDS: HYDROmorphone 1 MG/ML Syringe IV (08:04)
[2021-12-15] MEDS: Ketorolac 15 MG/ML Vial IV (08:04)
[2021-12-15] MEDS: 0.9% Normal Saline 1,000 ML 999 ML IV (08:04)
[2021-12-15] MEDS: Haloperidol Lactate 5 MG/ML Vial 2 MG IV (08:04)
[2021-12-15 08:17] VITALS: BP 143/79; PULSE 68; RESP 16; TEMP 36.6
[2021-12-15 08:24] LABS: Anion Gap 5 (5-15); BUN 10 mg/dL (7-18); Calcium,Total 9.2 mg/dL (8.5-10.1); Chloride 111 mmol/L (98-107); Creatinine, Serum 0.71 mg/dL (0.55-1.02); EST Glomerular Filtration Rate 92 mL/min (>60); Est Glom Filt Rate - Afr Amer 111 mL/min (>60); Estimated Creatinine Clearance 80.95 ml/min; Glucose 131 mg/dL (74-106); Sodium Level 144 mmol/L (136-145)
--- NOTE | 2021-12-15 08:33 | RAD_ITS ---
STUDY: X-RAY - ABDOMEN/PELVIS REASON FOR EXAM: Female, 51 years old. Pain. Recent stent placement. TECHNIQUE: Single AP view of the abdomen / pelvis. COMPARISON: Comparison is made with prior study dated 12/12/2021. FINDINGS: Normal visualized lung bases. There is a moderate amount of colonic fecal material. A left-sided double-J stent catheter seen with its proximal tip in the left renal pelvis and distal tip in the left side of the bladder. There is evidence of calcific densities in the proximal left ureter overlying the transverse processes of the L3 vertebrae on the left side. Normal soft tissue structures. Normal visualized osseous structures. RAD/Abdomen Single View IMPRESSION: Status post left double-J stent catheter. Persistent calcific density seen within the proximal portion of the left ureter overlying the transverse processes of the L3 vertebrae on the left side. This is unchanged. Electronically Signed: Frandy Villegas MD at 8:55 EDT ,
[2021-12-15 09:00] VITALS: BP 135/75; PULSE 76; RESP 16; TEMP 36.7; O2SAT 94
[2021-12-15 10:00] VITALS: BP 143/81; PULSE 78; RESP 16; TEMP 36.6; O2SAT 94
[2021-12-15] MEDS: HYDROmorphone 0.5 MG/0.5 ML SYRINGE IV (11:21)
[2021-12-15 11:26] VITALS: BP 146/90; PULSE 80; RESP 16; O2SAT 97; O2SAT 98
== END 2021-12-15 11:27 | disposition home or self-care (01) ==
PROVIDERS: Emergency Provider Student in an Organized Health Care Education/Training Program; PCP Internal Medicine; Visit Provider Student in an Organized Health Care Education/Training Program
DX: N20.1 Calculus of ureter (principal); R31.9 Hematuria, unspecified; R11.2 Nausea with vomiting, unspecified; M19.90 Unspecified osteoarthritis, unspecified site; F41.9 Anxiety disorder, unspecified; Z79.899 Other long term (current) drug therapy
CPT/HCPCS: 74018; 80048; 81001; 85025; 96361; 96374; 96375; 96376; 99282; J7030; A4216

== ENCOUNTER 2021-12-19 14:28 | Observation (INO) | payer OTHER, SELFPAY ==
--- NOTE | 2021-12-19 09:12 | RAD_ITS ---
STUDY: X-RAY - ABDOMEN/PELVIS REASON FOR EXAM: Female, 51 years old. STONES TECHNIQUE: Single AP view of the abdomen / pelvis. COMPARISON: Comparison is made with prior study of 12/15/2021. FINDINGS: There is an unremarkable bowel gas pattern. A left-sided double-J stent catheter is seen. The proximal tip is in the region of the left renal pelvis and the distal tip is in the left side of the bladder. Since prior study, the previously seen columning of tiny stones has migrated distally overlying the superior aspect of the sacrum. Normal soft tissue structures. Normal visualized osseous structures. RAD/Abdomen Single View IMPRESSION: The column of tiny ureteral stones is now seen overlying the proximal superior aspect of the left hemisacrum. Electronically Signed: Frandy Villegas MD at 10:36 EDT ,
[2021-12-19 10:58] LABS: Mucous, Urine 0 SEEN /hpf (<or=2+); Red Blood Cells-Urine 0 SEEN /hpf (0-5); Squamous Epithelial Cells - UA 0 SEEN /hpf (5-10); White Blood Cells 0 SEEN /hpf (0-5)
[2021-12-19 11:09] LABS: Color, Urine Yellow (Yellow); Glucose, Dipstick Normal (Normal); Ketone-Dipstick Negative (Negative); Leukocyte Esterase-Dipstick Negative /ul (Negative); Nitrite-Dipstick Negative (Negative); Occult Blood-Urine 25 /ul (Negative); Protein-Dipstick Negative (Negative); Urine Bilirubin Dipstick Negative (Negative); Urine Clarity Clear (Clear); Urine Urobilinogen Normal (Normal)
[2021-12-19] MEDS: HYDROmorphone 0.5 MG/0.5 ML SYRINGE IV ×3 (11:10→20:38)
[2021-12-19 11:26] VITALS: BP 151/91; PULSE 70; RESP 16; TEMP 37.1; O2SAT 98; BMI 30.6
[2021-12-19 11:26] LABS: Bacteria 1+ /hpf (None Seen)
[2021-12-19] MEDS: Lactated Ringers 1,000 ML 15 ML IV (11:32)
[2021-12-19 13:20] LABS: Color, Urine Yellow (Yellow); Glucose, Dipstick Normal (Normal); Ketone-Dipstick Negative (Negative); Leukocyte Esterase-Dipstick 25 /ul (Negative); Nitrite-Dipstick Negative (Negative); Occult Blood-Urine 25 /ul (Negative); Protein-Dipstick 30 mg/dl (Negative); Specific Gravity, Urine 1.015 (1.002-1.030); Urine Bilirubin Dipstick Negative (Negative); Urine Clarity Clear (Clear); Urine Urobilinogen Normal (Normal)
[2021-12-19 13:33] LABS: Red Blood Cells-Urine 5-10 SEEN /hpf (0-5); Squamous Epithelial Cells - UA 0-5 SEEN /hpf (5-10); White Blood Cells 0-5 SEEN /hpf (0-5)
[2021-12-19 13:34] LABS: Bacteria 1+ /hpf (None Seen); Mucous, Urine RARE /hpf (<or=2+)
[2021-12-19 14:55] VITALS: BP 142/80; PULSE 72; RESP 16; TEMP 37.1; O2SAT 94
--- NOTE | 2021-12-19 15:14 | SUR.PREOP ---
Report called to Maribel on [facility]. Antibiotic on OCT, this nurse called pharmacy to have them deliver medication to [facility]. belongings at bedside. will meet patient in room 312.
[2021-12-19 15:42] VITALS: BP 184/95; PULSE 68; RESP 20; TEMP 36.7; O2SAT 99; BMI 30.4
[2021-12-19] MEDS: Lactated Ringers 1,000 ML 125 ML IV ×2 (15:57→21:48)
[2021-12-19] MEDS: Ciprofloxacin 400 MG/200 ML BAG 200 MG IV ×2 (15:58→21:48)
[2021-12-19] MEDS: oxyCODONE 5 MG Tablet 10 MG PO ×2 (16:14→20:52)
--- NOTE | 2021-12-19 16:57 | NURSING ---
Pt went to the bathroom and this nurse strained urine. There was 3 tiny dark solid pieces in the strainer that were sent down to lab at this time.
[2021-12-19 18:33] VITALS: BP 150/78; PULSE 77; RESP 18; TEMP 36.9; O2SAT 95
[2021-12-19] MEDS: Ondansetron 4 MG/2 ML Vial IV (22:36)
--- NOTE | 2021-12-19 23:00 | NURSING ---
This nurse spoke with Physician regarding pt experiencing bladder spasms. Physician ordered B & O suppository x 1. The patient then declined the medication ordered due to previous adverse reaction to morphine.
[2021-12-19] MEDS: Ketorolac 30 MG/ML Syringe IV (23:33)
[2021-12-20] VITALS (16 sets, daily range): BP systolic 145–177; BP diastolic 72–100; PULSE 72–89; RESP 14–18; TEMP 36.5–37.2; O2SAT 91–99; BMI 30.4
[2021-12-20] MEDS: HYDROmorphone 0.5 MG/0.5 ML SYRINGE IV ×2 (01:58→06:08)
[2021-12-20] MEDS: Lactated Ringers 1,000 ML 125 ML IV ×2 (06:23→21:29)
--- NOTE | 2021-12-20 06:46 | EKG12_ITS ---
Test Reason : PRE-OP Blood Pressure : / mmHG Vent. Rate : 077 BPM Atrial Rate : 077 BPM P-R Int : 134 ms QRS Dur : 096 ms QT Int : 358 ms P-R-T Axes : 038 -19 022 degrees QTc Int : 405 ms Normal sinus rhythm Poor R wave progression Confirmed by EUGENE COUCH, JUVENTINO ([id number]), state editor JANES WARNER ([id number]) on 12/21/2021 11:18:27 AM Referred By: Ninfa Madrigal Confirmed By:JUVENTINO KNIGHT MD
[2021-12-20] MEDS: oxyCODONE 5 MG Tablet 10 MG PO ×2 (07:03→21:26)
[2021-12-20] MEDS: HYDROmorphone 0.5 MG/0.5 ML SYRINGE 1 MG IV ×3 (08:35→22:49)
[2021-12-20] MEDS: Ciprofloxacin 400 MG/200 ML BAG 200 MG IV ×2 (10:20→21:27)
--- NOTE | 2021-12-20 17:00 | CALC_PTH ---
PATIENT: PARISA BUTLER LOC: [facility] U#:[id number] AGE/SX: 51/F ROOM: [facility] RE12/19/[address]: Dr. Ninfa Madrigal MD : 1970 BED: 1 DIS: 12/21/2021 SPEC #: [id number] RECD: 12/21/21 08:10 STATUS: SAUL MODI #: [id number] EUGENE: 12/20/21 17:[address]: Ninfa Madrigal DEPT: SURGICAL PATHOLOGY RECD BY: Isa De La Fuente ENTERED: 12/21/21 09:56 SP TYPE: Calculi OTHR DR: Dr. Gaby Limon DO Tissues: CALCULI Procedures: Surgery Specimen Level I HEADER OPERATION: Cystoscopy, ureteroscopy, laser lithotripsy, stone basket extraction PRE-OP DIAGNOSIS: Hydronephrosis, left ureteral calculus, calculus of left kidney TISSUE SUBMITTED: Left ureteral calculi ? for gross only GROSS DIAGNOSIS Fragments of stone, clinically left ureteral calculi (gross only). KINA:saul 12/22/2021 COMMENT If chemical analysis is requested on this specimen, please notify the laboratory. GROSS DESCRIPTION Received without fixative labeled with the patient's name and designated left ureteral calculi. The specimen consists of multiple fragments of brown stone mixed with blood clot measuring in aggregate 1.5 x 1.5 x 0.5 cm. The entire specimen is saved if stone analysis is requested. / KINA:saul 12/21/2021 CPT: 88077
--- NOTE | 2021-12-20 17:12 | PCM.OPRPT ---
Problems Associated Problem List Diagnoses (1) Hydronephrosis: (2) Left ureteral calculus: (3) Calculus of left kidney: Report of Operation Date of Procedure: 12/20/21 Pre-Operative Diagnosis: Left ureteral Steinstrasse, left renal calculus Post-Operative Diagnosis: Same Surgery/Procedure Performed:: Cystoscopy, left ureteroscopy, holmium laser lithotripsy, significant and difficult stone basket extraction, left ureteral stent change Surgeon: Ninfa Madrigal Type of Anesthesia: General Specimen's removed: Stone fragments Description of Procedure: The patient is a 51-year-old female who is status post an extracorporal shockwave lithotripsy with stent for 3 cm left renal stone burden. She developed left ureteral Steinstrasse and has passed a significant amount of stone over the last week. She is now in uncontrolled pain and presents for surgical intervention. She was admitted for antibiotics preoperatively and for pain control. She was taken to the operating room and placed on the operating room table. Anesthesia monitored the head, neck, airway, IV access and vital signs throughout the case. Once anesthesia was appropriate ministered, the patient was placed into dorsal lithotomy position was prepped and draped in usual sterile fashion. The cystoscope was inserted through the urethra under direct visualization. Once inside the bladder the left ureteral orifice was identified and the stent was visualized. There were already stone fragments within the urinary bladder and at the ureteral orifice. At this time a 0.035 Glidewire was passed alongside the stent with positioning identified in the left renal pelvis on fluoroscopy. The stent was then grasped and pulled to the meatus where a wire was placed through the stent for passage of the ureteroscope. At this time the flexible ureteroscope was met with significant amount of stone exuding from the left ureteral orifice. The scope was switched to the semirigid ureteroscope and the 270 ?m laser fiber was used to fragment the leading stones into smaller pieces. An stone basket was then used to strategically remove the ureteral fragments until as many as possible were removed. After the last visible fragment was removed with the stone basket, the Glidewire was then replaced and the flexible ureteroscope was taken all the way into the renal pelvis were no remaining stone fragments were identified. There was mucus and debris which was flushed with normal saline. At this time direct visualization of the entire length of the ureter was performed. There were small stone fragments too small for basket retrieval and then there were 3 fragments identified that were large enough for removal. These were grasped and removed using both the flexible ureteroscope and then the semirigid ureteroscope. There were no obvious ureteral injuries, however due to the significant amount of stone burden removed and the multiple reentry's of the ureteroscope into the ureter, there was edema of the left ureter. Once they were all removed, the safety wire was used for placement of a 24 cm 6 Mongolian JJ stent which had good curling in the renal pelvis as well as the urinary bladder. The bladder was then irrigated for multiple stone fragments which were sent for pathologic evaluation. The patient was then awakened and taken to the recovery room in good condition. There were no complications during this procedure. Grafts/Implants Used: 6 x 24 JJ stent Complications none Admit VTE Documentation VTE Present on Admission: Yes VTE Mechan Device Prophylaxis: SCD's VTE Pharm Prophylaxis ordered?: No Reason prophylaxis not ordered:: Treatment Not Indicated
[2021-12-20] MEDS: Lubricating Jelly 60 GM Tube 30 GM (18:00)
--- NOTE | 2021-12-20 19:34 | PCM.DC ---
Discharge Instructions Diet Discharge Diet: No restrictions Activity Discharge Activity: [address] (when not taking narcotics) May resume sexual activity in: 1 week Dressing / Incision Call your doctor if you observe: Fever of 101 or Higher, Inability to urinate and Inability to have a bowel movement Follow Up Care Please Follow Up With: Ninfa Madrigal MD When: call for appt for stent removal Test Results: Test results from this visit will be discussed in further detail at your follow-up appointment, if applicable. Discharge Plan Admission Admit Date/Time: 12/19/21 14:28 Attending Provider: Ninfa Madrigal Primary Care Provider: Gaby Limon Discharge Orders/Prescriptions Prescriptions: New ciprofloxacin HCl [ciprofloxacin HCl] 500 MG tablet 500 mg PO BID Qty: 4 RF: 0 Continued oxycodone-acetaminophen [Percocet] 5-325 mg tablet 1 tab PO Q6H PRN (Reason: pain) 3 Days Qty: 12 RF: 0 ondansetron 4 mg tablet,disintegrating 4 mg PO TID PRN PRN (Reason: nausea and vomiting) Qty: 21 RF: 0 multivitamin Tablet 1 tab PO DAILY RF: 0 phenazopyridine [Pyridium] 200 MG tablet 200 mg PO TID PRN PRN (Reason: Bladder Spasms) 7 Days Qty: 30 RF: 0 oxycodone-acetaminophen 1 TABLET tablet 2 tab PO Q8H PRN PRN (Reason: Pain) 7 Days Qty: 20 RF: 0 ondansetron HCl 8 MG tablet 8 mg PO Q8H PRN PRN (Reason: Nausea) 7 Days Qty: 20 RF: 0 promethazine 25 mg suppository 25 mg [place] Q6H PRN (Reason: nausea and vomiting) Qty: 12 RF: 0 promethazine 25 mg tablet 25 mg PO TID PRN (Reason: nausea and vomiting) Qty: 14 RF: 0 Referrals / Follow Up: Gaby Limon DO [Primary Care Provider] - Disposition Disposition (needs filled in before D/C Order can be placed): Home, Self Care
[2021-12-20] MEDS: Ipratropium/Albuterol Sulfate 3 ML AMPUL.NEB INHALATION (19:57)
[2021-12-20] MEDS: Phenazopyridine 95 MG Tablet 190 MG PO (20:06)
--- NOTE | 2021-12-20 20:58 | SUR.PHASEI ---
patient had tordol 30mg per anesthesia documentation at 1914
[2021-12-20] MEDS: 0.9% Saline Lock 10 ML Syringe IV (22:49)
[2021-12-20] MEDS: Docusate Sodium 100 MG Capsule PO (22:58)
[2021-12-21 01:39] VITALS: BP 141/101; PULSE 62; RESP 18; TEMP 37.1; O2SAT 97
[2021-12-21] MEDS: oxyCODONE 5 MG Tablet 10 MG PO ×3 (01:43→10:12)
[2021-12-21] MEDS: HYDROmorphone 0.5 MG/0.5 ML SYRINGE 1 MG IV ×3 (03:31→12:00)
[2021-12-21] MEDS: 0.9% Saline Lock 10 ML Syringe IV ×2 (03:31→04:44)
[2021-12-21] MEDS: Ketorolac 30 MG/ML Syringe IV (04:44)
[2021-12-21] MEDS: Lactated Ringers 1,000 ML 125 ML IV (04:45)
[2021-12-21 04:50] VITALS: BP 176/95; PULSE 74; RESP 18; TEMP 36.9; O2SAT 96
[2021-12-21 08:06] VITALS: O2SAT 95
[2021-12-21] MEDS: LORazepam 1 MG Tablet PO (08:41)
[2021-12-21 09:02] VITALS: BP 169/95; PULSE 74; RESP 18; TEMP 36.9; O2SAT 98
[2021-12-21] MEDS: Ciprofloxacin 400 MG/200 ML BAG 200 MG IV (09:35)
[2021-12-21] MEDS: Phenazopyridine 95 MG Tablet 190 MG PO (09:45)
[2021-12-21 12:05] VITALS: BP 163/90; PULSE 74; RESP 18; TEMP 36.9; O2SAT 97
[2021-12-21 12:09] VITALS: BP 163/90; PULSE 74; RESP 18; TEMP 36.9; O2SAT 97
== END 2021-12-21 12:12 | disposition home or self-care (01) ==
LOC: SDC 14:42 → MS3 12-20 08:54
PROVIDERS: Admitting Provider Urology; PCP Internal Medicine; Referring Provider Urology; Visit Provider Urology
PROC: 0TJ98ZZ Inspection of Ureter, Via Natural or Artificial Opening Endoscopic (ICD-10-PCS; CPT 52352; principal; 2021-12-20 16:50)
DX: N13.2 Hydronephrosis with renal and ureteral calculous obstruction (principal); M19.90 Unspecified osteoarthritis, unspecified site; Z79.899 Other long term (current) drug therapy
CPT/HCPCS: 52356; 00918; 74018; 76000; 81001; 82360; 87086; 87088; 87426; 88300; 93005; 94640; 96361; 96365; 96366; 96375; 96376; 99218; J7120; A4216; C2617; G0378; J0744; J2405

== ENCOUNTER → 2022-01-31 | Outpatient (CLI) | payer OTHER, SELFPAY ==
[2022-01-31 09:56] LABS: Calcium,Total 9.4 mg/dL (8.5-10.1)
== END | disposition home or self-care (01) ==
LOC: MTLAB 08:56
PROVIDERS: PCP Internal Medicine; Referring Provider Urology; Visit Provider Urology
DX: R82.994 Hypercalciuria (principal)
CPT/HCPCS: 36415; 82310